=== PATIENT | male | born 1965 | race Caucasian/White ===

== ENCOUNTER 2018-01-30 09:06 | Inpatient (IN) | payer OTHER ==
[2018-01-30 09:21] VITALS: BMI 38.7
--- NOTE | 2018-01-30 11:06 | HP ---
CIWA Score Nausea/Vomitin Muscle Tremors: 2 Anxiety: 2 Agitation: 2 Paroxysmal Sweats: 1-Minimal Palms Moist Orientation: 0-Oriented Tacttile Disturbances: 1-Very Mild Itch/Numbness Auditory Disturbances: 1-Very Mild Visual Disturbances: 0-None Headache: 2-Mild CIWA-Ar Total Score: 13 - Admission Criteria OASAS Guidelines: Admission for Medically Managed Detox: Requires at least one of the followin. CIWA greater than 12 2. Seizures within the past 24 hours 3. Delirium tremens within the past 24 hours 4. Hallucinations within the past 24 hours 5. Acute intervention needed for co occurring medical disorder 6. Acute intervention needed for co occurring psychiatric disorder 7. Severe withdrawal that cannot be handled at a lower level of care (continued vomiting, continued diarrhea, abnormal vital signs) requiring intravenous medication and/or fluids 8. Patient presents the following: CIWA greater than 12 Admission Criteria Met: Admission criteria met Admission ROS BHS - HPI Chief Complaint: i need help to stop drinking alcohol Allergies/Adverse Reactions: Allergies Allergy/AdvReac Type Severity Reaction Status Date / Time No Known Allergies Allergy Verified 01/30/18 10:47 History of Present Illness: this 52 years old male with alcohol dependence,seeking detox,last treatment in rehab 02/05/15 to 02/11/15 , history of pancreatitis history hypertension,type 2 dm,hypercholesterolemia nicotine dependence no significant period of sobriety Exam Limitations: No Limitations - Ebola screening Have you traveled outside of the country in the last 21 days: No Have you had contact with anyone from an Ebola affected area: No Have you been sick,other than usual withdrawal symptoms: No Do you have a fever: No - Review of Systems Constitutional: Loss of Appetite, Malaise, Night Sweats, Changes in sleep EENT: reports: Nose Congestion Respiratory: reports: No Symptoms reported Cardiac: reports: No Symptoms Reported GI: reports: Nausea, Poor Appetite, Abdominal cramping : reports: No Symptoms Reported Musculoskeletal: reports: Back Pain, Muscle Pain Integumentary: reports: Dryness Neuro: reports: Tremors Endocrine: reports: No Symptoms Reported Hematology: reports: No Symptoms Reported Psychiatric: reports: No Sypmtoms Reported, Judgement Intact, Mood/Affect Appropiate, Orientated x3, Depressed Other Systems: Reviewed and Negative Patient History - Patient Medical History Hx Anemia: No Hx Asthma: Yes Hx Chronic Obstructive Pulmonary Disease (COPD): No Hx Cancer: No Hx Cardiac Disorders: No Hx Congestive Heart Failure: No Hx Hypertension: Yes Hx Hypercholesterolemia: Yes (FENOFIBRATE 145 MG DAILY) Hx Pacemaker: No HX Cerebrovascular Accident: No Hx Seizures: No Hx Dementia: No Hx Diabetes: Yes Hx Gastrointestinal Disorders: Yes (panceatitis) Hx Liver Disease: Yes (ALCOHOL HEPATITIS WITHOUT ASCITES ) Hx Genitourinary Disorders: No Hx Sexually Transmitted Disorders: No Hx Renal Disease (ESRD): No Hx Thyroid Disease: No Hx Human Immunodeficiency Virus (HIV): No Hx Hepatitis C: Yes (no treatment) Hx Depression: Yes Hx Suicide Attempt: No Hx Bipolar Disorder: No Hx Schizophrenia: No Other Medical History: no suicidal,no homicidal - Patient Surgical History Past Surgical History: No Hx Neurologic Surgery: No Hx Cataract Extraction: No Hx Cardiac Surgery: No Hx Lung Surgery: No Hx Breast Surgery: No Hx Breast Biopsy: No Hx Abdominal Surgery: No Hx Appendectomy: No Hx Cholecystectomy: No Hx Genitourinary Surgery: No Hx Section: No Hx Orthopedic Surgery: No Anesthesia Reaction: No - PPD History Previous Implant?: Yes Documented Results: Negative w/proof Implanted On Prior [facility] Admission?: Yes Date: 02/04/15 Results: 0 mm PPD to be Administered?: Yes - Smoking Cessation Smoking history: Current some day smoker Have you smoked in the past 12 months: Yes Aproximately how many cigarettes per day: 1 Hx Chewing Tobacco Use: No Initiated information on smoking cessation: Yes 'Breaking Loose' booklet given: 01/30/18 - Substance & Tx. History Hx Alcohol Use: Yes Hx Substance Use: No Substance Use Type: Alcohol Hx Substance Use Treatment: Yes (rehab [facility] 02/05/15 to 02/11/15) - Substances Abused Alcohol Route: Oral Frequency: Daily Amount used: 6 packs of 24 ozs of beer Age of first use: 12 Date of Last Use: 01/29/18 Family Disease History - Family Disease History Family Disease History: Heart Disease: Mother (HTN- ), Other: Father ( ALCOHOLISM), Mother Admission Physical Exam BHS - Vital Signs Vital Signs: Vital Signs - 24 hr 01/30/18 09:15 Temperature 99.2 F Pulse Rate 78 Respiratory 18 Rate Blood Pressure 168/79 - Physical General Appearance: Yes: Moderate Distress, Tremorous, Irritable, Sweating, Anxious HEENTM: Yes: Normal ENT Inspection, ANKIT, Pharynx Normal Respiratory: Yes: Lungs Clear, Normal Breath Sounds, No Respiratory Distress Neck: Yes: Supple Breast: Yes: Within Normal Limits Cardiology: Yes: Within Normal Limits, Regular Rhythm, Regular Rate, S1, S2 Abdominal: Yes: Within Normal Limits, Normal Bowel Sounds, Non Tender, Soft Genitourinary: Yes: Within Normal Limits Back: Yes: Muscle Spasm Musculoskeletal: Yes: Within Normal Limits, Back pain, Muscle Pain Extremities: Yes: Tremors 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 NML intact, Alert, Motor Strength 5/5 Integumentary: Yes: Dry Lymphatic: Yes: Within Normal Limits - Diagnostic (1) Alcohol dependence with uncomplicated withdrawal Current Visit: No Status: Acute (2) Asthma Current Visit: No Status: Chronic Qualifiers: Asthma severity: mild intermittent Asthma complication type: uncomplicated (3) GERD (gastroesophageal reflux disease) Current Visit: No Status: Chronic (4) Hyperlipidemia Current Visit: No Status: Chronic Qualifiers: Hyperlipidemia type: Mixed hyperlipidemia (5) History of pancreatitis Current Visit: Yes Status: Acute Cleared for Admission [facility] - Detox or Rehab [facility] Level of Care: Medically Managed Detox Regimen/Protocol: Librium [facility] Breath Alcohol Content Breath Alcohol Content: 0.085 Urine Drug Screen - Results Drug Screen Negative: No Urine Drug Screen Results: THC-Marijuana, BZO-Benzodiazepines
[2018-01-30] MEDS ORDERED: ACETAMINOPHEN 325 MG TABLET (FP) PO PRN (11:15)
[2018-01-30] MEDS ORDERED: MAGNESIUM HYDROX 2400MG/30ML ORAL SUSPENSION 30 ML CUP PO PRN (11:15)
[2018-01-30] MEDS ORDERED: guaiFENesin/D-METHORPHAN HB 10 ML UNIT-DOSE CUPS PO PRN (11:15)
[2018-01-30] MEDS ORDERED: LOPERAMIDE HCL 2 MG CAPSULE PO PRN (11:15)
[2018-01-30] MEDS ORDERED: MAGNESIUM CITRATE 300 ML BOTTLE PO PRN (11:15)
[2018-01-30] MEDS ORDERED: P-EPHED 60MG/TRIPROLIDI 2.5MG TABLET PO PRN (11:15)
[2018-01-30] MEDS ORDERED: hydrOXYzine PAMOATE 50 MG CAPSULE (FP) PO PRN (11:15)
[2018-01-30] MEDS ORDERED: MAG HYDROX/AL HYDROX/SIMETH 30 ML UNIT-DOSE CUP PO PRN (11:15)
[2018-01-30] MEDS ORDERED: MENTHOL/PHENOL 1 EACH UD MM PRN (11:15)
[2018-01-30] MEDS: chlordiazePOXIDE HCL 25 MG CAPSULE PO PRN (12:34)
[2018-01-30] MEDS: amLODIPine BESYLATE 10 MG TABLET (FP) PO SCH (12:35)
[2018-01-30] MEDS: METOPROLOL TARTRATE 50 MG TABLET (FP) PO SCH ×2 (12:35→22:20)
[2018-01-30] MEDS: HYDROCHLOROTHIAZIDE 12.5 MG CAPSULE (FP) PO SCH (12:35)
[2018-01-30] MEDS: chlordiazePOXIDE HCL 25 MG CAPSULE PO SCH ×2 (17:42→22:19)
[2018-01-30 17:43] LABS: URINE APPEARANCE CLEAR; URINE BILIRUBIN NEGATIVE (<2.0 mg/dL); URINE COLOR LTYELLOW; URINE GLUCOSE (UA) 2+ (NEGATIVE); URINE KETONE NEGATIVE (NEGATIVE); URINE LEUK ESTERASE NEGATIVE (NEGATIVE); URINE NITRITE NEGATIVE (NEGATIVE); URINE PROTEIN NEGATIVE (NEGATIVE)
[2018-01-30] MEDS: THIAMINE HCL 100 MG TABLET (FP) PO SCH (22:19)
[2018-01-30] MEDS: MELATONIN 5 MG TABLETS PO PRN (22:20)
[2018-01-31] MEDS: chlordiazePOXIDE HCL 25 MG CAPSULE PO SCH ×4 (05:15→22:15)
[2018-01-31] MEDS: chlordiazePOXIDE HCL 25 MG CAPSULE PO PRN (08:33)
[2018-01-31 10:00] LABS: HEMATOCRIT 44.7 % (35.4-49); HEMOGLOBIN 14.7 GM/dL (11.7-16.9); MCH 32.2 pg (25.7-33.7); MCHC 32.8 g/dl (32.0-35.9); MEAN CELL VOLUME 98.4 fl (80-96); PLATELET COUNT 200 K/MM3 (134-434); RBC 4.55 M/mm3 (4.00-5.60); WHITE BLOOD COUNT 7.7 K/mm3 (4.0-10.0)
[2018-01-31] MEDS: PRENATAL VITAMINS W/ FOLIC ACID TABLET (FP) PO SCH (10:06)
[2018-01-31] MEDS: amLODIPine BESYLATE 10 MG TABLET (FP) PO SCH (10:06)
[2018-01-31] MEDS: FENOFIBRIC ACID 135 MG CAP PO SCH (10:06)
[2018-01-31] MEDS: HYDROCHLOROTHIAZIDE 12.5 MG CAPSULE (FP) PO SCH (10:06)
[2018-01-31] MEDS: METOPROLOL TARTRATE 50 MG TABLET (FP) PO SCH ×2 (10:06→22:15)
--- NOTE | 2018-01-31 10:35 | PN ---
S CIWA - CIWA Score Nausea/Vomitin-No Nausea/No Vomiting Muscle Tremors: 2 Anxiety: 1-Mildly Anxious Agitation: 1-Slight > Activity Paroxysmal Sweats: 2 Orientation: 0-Oriented Tacttile Disturbances: 2-Mild Itch/Numbness/Burn Auditory Disturbances: 0-None Visual Disturbances: 0-None Headache: 0-None Present CIWA-Ar Total Score: 8 BHS Progress Note (SOAP) Subjective: PATIENT C/O SHAKES, ANXIETY/RESTLESSNESS, SWEATING AND NUMBNESS/TINGLING OF FEET. Objective: 01/31/18 10:31 Vital Signs Temperature 97.7 F 01/31/18 09:22 Pulse Rate 62 01/31/18 09:22 Respiratory Rate 18 01/31/18 09:22 Blood Pressure 145/74 01/31/18 09:22 O2 Sat by Pulse Oximetry (%) Vital Signs Temperature 97.7 F 01/31/18 09:22 Pulse Rate 62 01/31/18 09:22 Respiratory Rate 18 01/31/18 09:22 Blood Pressure 145/74 01/31/18 09:22 O2 Sat by Pulse Oximetry (%) Laboratory Tests 01/30/18 01/30/18 01/30/18 10:53 11:50 16:18 WBC RBC Hgb Hct MCV MCH MCHC RDW Plt Count MPV POC Glucometer 206 106 Urine Color Urine Appearance Urine pH Ur Specific [place] Urine Protein Urine Glucose (UA) Urine Ketones Urine Blood Urine Nitrite Urine Bilirubin Urine Urobilinogen Ur Leukocyte Esterase HIV 1&2 Antibody Screen Negative HIV P24 Antigen Negative 01/30/18 01/31/18 01/31/18 16:56 05:14 05:50 WBC 7.7 RBC 4.55 Hgb 14.7 Hct 44.7 MCV 98.4 H MCH 32.2 MCHC 32.8 RDW 14.0 D Plt Count 200 D MPV 8.0 POC Glucometer 135 Urine Color Ltyellow Urine Appearance Clear Urine pH 7.0 D Ur Specific [place] 1.012 Urine Protein Negative Urine Glucose (UA) 2+ H Urine Ketones Negative Urine Blood Negative Urine Nitrite Negative Urine Bilirubin Negative Urine Urobilinogen 2.0 Ur Leukocyte Esterase Negative HIV 1&2 Antibody Screen HIV P24 Antigen PE: ALERT AND ORIENTED SKIN WARM AND MOIST CAR S1S2 RESP CTA BL EXT +TREMORS, +PEDAL EDEMA B/L ANXIOUS Assessment: 01/31/18 10:32 WITHDRAWAL SX Plan: CONTINUE DETOX ENCOURAGE ORAL FLUIDS CONTINUE TO MONITOR CLINICALLY
[2018-01-31] MEDS: IBUPROFEN 400 MG TABLET (FP) PO PRN ×2 (10:41→17:32)
[2018-01-31 10:47] LABS: ALBUMIN 3.7 g/dl (3.4-5.0); ALK PHOS 198 U/L (45-117); ANION GAP 10 MMOL/L (8-16); BILIRUBIN,TOTAL 1.1 mg/dL (0.2-1); BLOOD UREA NITROGEN 15 mg/dL (7-18); CHLORIDE 97 mmol/L (98-107); CO2 29 mmol/L (21-32); CREATININE 0.8 mg/dL (0.55-1.3); GLUCOSE,RANDOM 178 mg/dL (74-106); POTASSIUM 4.1 mmol/L (3.5-5.1); SGOT/AST 73 U/L (15-37); SGPT/ALT 103 U/L (13-61); SODIUM 136 mmol/L (136-145); TOT PROT 7.4 g/dl (6.4-8.2)
--- NOTE | 2018-01-31 11:37 | EKG ---
Test Reason : Blood Pressure : / mmHG Vent. Rate : 075 BPM Atrial Rate : 075 BPM P-R Int : 160 ms QRS Dur : 160 ms QT Int : 490 ms P-R-T Axes : 037 -70 001 degrees QTc Int : 547 ms SINUS RHYTHM WITH PREMATURE ATRIAL COMPLEXES RIGHT BUNDLE BRANCH BLOCK LEFT ANTERIOR FASCICULAR BLOCK BIFASCICULAR BLOCK ABNORMAL ECG WHEN COMPARED WITH ECG OF 05-FEB-2015 15:00, PREMATURE ATRIAL COMPLEXES ARE NOW PRESENT T WAVE INVERSION NOW EVIDENT IN INFERIOR LEADS Confirmed by SIMA MCKEON, INOCENCIA ([id number]) on 01/31/2018 11:36:49 AM Referred By: Confirmed By:INOCENCIA GAO MD
[2018-01-31] MEDS ORDERED: FLU VACCINE QUAD 60 MCG/0.5 ML (MDV 18-19) IM ONE (12:00)
[2018-01-31] MEDS ORDERED: PNEUMOC 13-VAL CONJ-DIP CRM/PF 0.5 ML DISP.SYRIN IM ONE (12:00)
[2018-01-31] MEDS ORDERED: PNEUMOCOCCAL 23 VACCINE 0.5 ML VIAL IM ONE (12:00)
--- NOTE | 2018-01-31 15:53 | CONSULT ---
[facility] Psychiatric Consult - Data Date of interview: 01/31/18 Admission source: [facility] Identifying data: Readmission to [facility] for this 52 y/o male seeking detoxification treatment, on , for alcohol dependence. Patient is single without dependents, homeless, unemployed and supported by relatives. Substance Abuse History: Confirmed by patient in this interview. Details in current [facility] report : Smoking history: Current some day smoker. Have you smoked in the past 12 months: Yes. Aproximately how many cigarettes per day: 1. Hx Chewing Tobacco Use: No. Initiated information on smoking cessation: Yes. ' Breaking Loose' booklet given: 01/30/18. - Substance & Tx. History. Hx Alcohol Use: Yes. Hx Substance Use: No. Substance Use Type: Alcohol. Hx Substance Use Treatment: [facility] - Substances Abused. Alcohol. Route: Oral. Frequency: Daily. Amount used: 6 packs of 24 ozs of beer. Age of first use: 12. Date of Last Use: 01/29/18 Medical History: Obesity, history of pancreatitis, bronchial asthma, hypertension, hypercholesterolemia and hepatitis (alcohol-induced). Psychiatric History: Patient denies history of psychiatric illness or suicide attempts. No antecedent of psychiatric OPD care. Physical/Sexual Abuse/Trauma History: Patient denies. Additional Comment: Urine Drug Screen Results: THC-Marijuana, BZO- Benzodiazepines. Noted. Mental Status Exam - Mental Status Exam Alert and Oriented to: Time, Place, Person Cognitive Function: Good Patient Appearance: Well Groomed Mood: Withdrawn, Hopeful Affect: Appropriate, Normal Range Patient Behavior: Fatigued, Cooperative Speech Pattern: Clear, Appropriate Voice Loudness: Normal Thought Process: Goal Oriented Thought Disorder: Not Present Hallucinations: Denies Suicidal Ideation: Denies Homicidal Ideation: Denies Insight/Judgement: Poor Sleep: Poorly, Difficulty falling asleep Appetite: Good Muscle strength/Tone: Normal Gait/Station: Normal Psychiatric Findings - Problem List (Pride 1, 2,3) (1) Alcohol dependence with uncomplicated withdrawal Current Visit: Yes Status: Acute (2) Cannabis abuse Current Visit: Yes Status: Acute (3) Insomnia Current Visit: Yes Status: Acute - Initial Treatment Plan Initial Treatment Plan: Psychoeducation. Sleep hygiene. Detoxification in progress. AA meetings. Supportive, group therapy. Recommend adherence to 12 step doctrine. Insomnia is addressed with melatonin at bedside. Patient agrees to this careplan. Observation.
[2018-01-31] MEDS: THIAMINE HCL 100 MG TABLET (FP) PO SCH (22:15)
[2018-02-01] MEDS: chlordiazePOXIDE HCL 25 MG CAPSULE PO SCH ×2 (05:17→10:26)
--- NOTE | 2018-02-01 10:02 | PN ---
S CIWA - CIWA Score Nausea/Vomitin-No Nausea/No Vomiting Muscle Tremors: 2 Anxiety: 2 Agitation: 1-Slight > Activity Paroxysmal Sweats: 2 Orientation: 0-Oriented Tacttile Disturbances: 0-None Auditory Disturbances: 0-None Visual Disturbances: 0-None Headache: 0-None Present CIWA-Ar Total Score: 7 BHS Progress Note (SOAP) Subjective: PATIENT C/O SWEATS, ANXIETY, SHAKES AND DRY COUGH. Objective: 02/01/18 10:00 Vital Signs Temperature 97.0 F L 02/01/18 09:12 Pulse Rate 65 02/01/18 09:12 Respiratory Rate 18 02/01/18 09:12 Blood Pressure 160/90 02/01/18 09:12 O2 Sat by Pulse Oximetry (%) Laboratory Tests 01/30/18 01/30/18 01/30/18 10:53 11:50 16:18 WBC RBC Hgb Hct MCV MCH MCHC RDW Plt Count MPV Sodium Potassium Chloride Carbon Dioxide Anion Gap BUN Creatinine Creat Clearance w eGFR POC Glucometer 206 106 Random Glucose Calcium Total Bilirubin AST ALT Alkaline Phosphatase Total Protein Albumin Urine Color Urine Appearance Urine pH Ur Specific [place] Urine Protein Urine Glucose (UA) Urine Ketones Urine Blood Urine Nitrite Urine Bilirubin Urine Urobilinogen Ur Leukocyte Esterase RPR Titer HIV 1&2 Antibody Screen Negative HIV P24 Antigen Negative 01/30/18 01/31/18 01/31/18 16:56 05:14 05:50 WBC 7.7 RBC 4.55 Hgb 14.7 Hct 44.7 MCV 98.4 H MCH 32.2 MCHC 32.8 RDW 14.0 D Plt Count 200 D MPV 8.0 Sodium Potassium Chloride Carbon Dioxide Anion Gap BUN Creatinine Creat Clearance w eGFR POC Glucometer 135 Random Glucose Calcium Total Bilirubin AST ALT Alkaline Phosphatase Total Protein Albumin Urine Color Ltyellow Urine Appearance Clear Urine pH 7.0 D Ur Specific [place] 1.012 Urine Protein Negative Urine Glucose (UA) 2+ H Urine Ketones Negative Urine Blood Negative Urine Nitrite Negative Urine Bilirubin Negative Urine Urobilinogen 2.0 Ur Leukocyte Esterase Negative RPR Titer HIV 1&2 Antibody Screen HIV P24 Antigen 01/31/18 01/31/18 01/31/18 05:50 05:50 16:17 WBC RBC Hgb Hct MCV MCH MCHC RDW Plt Count MPV Sodium 136 Potassium 4.1 Chloride 97 L Carbon Dioxide 29 Anion Gap 10 BUN 15 Creatinine 0.8 Creat Clearance w eGFR > 60 POC Glucometer 174 Random Glucose 178 H Calcium 8.0 L Total Bilirubin 1.1 H AST 73 H ALT 103 H Alkaline Phosphatase 198 H Total Protein 7.4 Albumin 3.7 Urine Color Urine Appearance Urine pH Ur Specific [place] Urine Protein Urine Glucose (UA) Urine Ketones Urine Blood Urine Nitrite Urine Bilirubin Urine Urobilinogen Ur Leukocyte Esterase RPR Titer Nonreactive HIV 1&2 Antibody Screen HIV P24 Antigen 02/01/18 05:17 WBC RBC Hgb Hct MCV MCH MCHC RDW Plt Count MPV Sodium Potassium Chloride Carbon Dioxide Anion Gap BUN Creatinine Creat Clearance w eGFR POC Glucometer 158 Random Glucose Calcium Total Bilirubin AST ALT Alkaline Phosphatase Total Protein Albumin Urine Color Urine Appearance Urine pH Ur Specific [place] Urine Protein Urine Glucose (UA) Urine Ketones Urine Blood Urine Nitrite Urine Bilirubin Urine Urobilinogen Ur Leukocyte Esterase RPR Titer HIV 1&2 Antibody Screen HIV P24 Antigen PE: SKIN WARM AND MOIST CAR S1S2 RESP FAINT SCATTERED WHEEZES, NO SOB EXT FULL ROM, +MILD TREMORS AMB AD CHARY Assessment: 02/01/18 10:01 WITHDRAWAL SX Plan: CONTINUE DETOX ENCOURAGE ORAL FLUIDS INCREASE HCTZ TO 25MG DAILY CONTINUE ALBUTEROL HFA PRN CONTINUE TO MONITOR
[2018-02-01] MEDS: amLODIPine BESYLATE 10 MG TABLET (FP) PO SCH (10:25)
[2018-02-01] MEDS: PRENATAL VITAMINS W/ FOLIC ACID TABLET (FP) PO SCH (10:25)
[2018-02-01] MEDS: METOPROLOL TARTRATE 50 MG TABLET (FP) PO SCH ×2 (10:26→22:16)
[2018-02-01] MEDS: HYDROCHLOROTHIAZIDE 25 MG TABLET (FP) PO SCH (10:27)
[2018-02-01] MEDS: ALBUTEROL SO4 8 GM HFA INHALER IH PRN ×2 (10:27→16:08)
[2018-02-01] MEDS: FENOFIBRIC ACID 135 MG CAP PO SCH (10:29)
[2018-02-01] MEDS: chlordiazePOXIDE 5 MG CAPSULE PO SCH ×2 (17:47→22:16)
[2018-02-01] MEDS: THIAMINE HCL 100 MG TABLET (FP) PO SCH (22:17)
[2018-02-01] MEDS: MELATONIN 5 MG TABLETS PO PRN (22:18)
[2018-02-02] MEDS: chlordiazePOXIDE 5 MG CAPSULE PO SCH ×2 (04:57→10:08)
[2018-02-02] MEDS: ALBUTEROL SO4 8 GM HFA INHALER IH PRN ×2 (09:41→22:01)
[2018-02-02] MEDS: PRENATAL VITAMINS W/ FOLIC ACID TABLET (FP) PO SCH (09:44)
[2018-02-02] MEDS: HYDROCHLOROTHIAZIDE 25 MG TABLET (FP) PO SCH (09:44)
[2018-02-02] MEDS: FENOFIBRIC ACID 135 MG CAP PO SCH (09:44)
[2018-02-02] MEDS: amLODIPine BESYLATE 10 MG TABLET (FP) PO SCH (09:44)
[2018-02-02] MEDS: METOPROLOL TARTRATE 50 MG TABLET (FP) PO SCH ×2 (09:44→22:14)
--- NOTE | 2018-02-02 10:44 | PN ---
[facility] Progress Note Note: PATIENT STATES HE IS FEELING BETTER. PATIENT C/O INTERRUPTED SLEEP, OCCASIONAL CHILLS/SWEATING. Vital Signs Temperature 97.5 F L 02/02/18 09:35 Pulse Rate 69 02/02/18 09:35 Respiratory Rate 16 02/02/18 09:35 Blood Pressure 148/78 02/02/18 09:35 O2 Sat by Pulse Oximetry (%) Laboratory Tests 01/30/18 01/30/18 01/30/18 10:53 11:50 16:18 WBC RBC Hgb Hct MCV MCH MCHC RDW Plt Count MPV Sodium Potassium Chloride Carbon Dioxide Anion Gap BUN Creatinine Creat Clearance w eGFR POC Glucometer 206 106 Random Glucose Calcium Total Bilirubin AST ALT Alkaline Phosphatase Total Protein Albumin Urine Color Urine Appearance Urine pH Ur Specific [place] Urine Protein Urine Glucose (UA) Urine Ketones Urine Blood Urine Nitrite Urine Bilirubin Urine Urobilinogen Ur Leukocyte Esterase RPR Titer HIV 1&2 Antibody Screen Negative HIV P24 Antigen Negative 01/30/18 01/31/18 01/31/18 16:56 05:14 05:50 WBC 7.7 RBC 4.55 Hgb 14.7 Hct 44.7 MCV 98.4 H MCH 32.2 MCHC 32.8 RDW 14.0 D Plt Count 200 D MPV 8.0 Sodium Potassium Chloride Carbon Dioxide Anion Gap BUN Creatinine Creat Clearance w eGFR POC Glucometer 135 Random Glucose Calcium Total Bilirubin AST ALT Alkaline Phosphatase Total Protein Albumin Urine Color Ltyellow Urine Appearance Clear Urine pH 7.0 D Ur Specific [place] 1.012 Urine Protein Negative Urine Glucose (UA) 2+ H Urine Ketones Negative Urine Blood Negative Urine Nitrite Negative Urine Bilirubin Negative Urine Urobilinogen 2.0 Ur Leukocyte Esterase Negative RPR Titer HIV 1&2 Antibody Screen HIV P24 Antigen 01/31/18 01/31/18 01/31/18 05:50 05:50 16:17 WBC RBC Hgb Hct MCV MCH MCHC RDW Plt Count MPV Sodium 136 Potassium 4.1 Chloride 97 L Carbon Dioxide 29 Anion Gap 10 BUN 15 Creatinine 0.8 Creat Clearance w eGFR > 60 POC Glucometer 174 Random Glucose 178 H Calcium 8.0 L Total Bilirubin 1.1 H AST 73 H ALT 103 H Alkaline Phosphatase 198 H Total Protein 7.4 Albumin 3.7 Urine Color Urine Appearance Urine pH Ur Specific [place] Urine Protein Urine Glucose (UA) Urine Ketones Urine Blood Urine Nitrite Urine Bilirubin Urine Urobilinogen Ur Leukocyte Esterase RPR Titer Nonreactive HIV 1&2 Antibody Screen HIV P24 Antigen 02/01/18 02/01/18 02/02/18 05:17 16:40 04:55 WBC RBC Hgb Hct MCV MCH MCHC RDW Plt Count MPV Sodium Potassium Chloride Carbon Dioxide Anion Gap BUN Creatinine Creat Clearance w eGFR POC Glucometer 158 161 167 Random Glucose Calcium Total Bilirubin AST ALT Alkaline Phosphatase Total Protein Albumin Urine Color Urine Appearance Urine pH Ur Specific [place] Urine Protein Urine Glucose (UA) Urine Ketones Urine Blood Urine Nitrite Urine Bilirubin Urine Urobilinogen Ur Leukocyte Esterase RPR Titer HIV 1&2 Antibody Screen HIV P24 Antigen PE: ALERT AND ORIENTED X 3 SKIN WARM, MILD MOISTURE EXT FULL ROM, NO TREMORS AMB AD CHARY A/P WITHDRAWAL SX CONTINUE DETOX REGIMEN ENCOURAGE ORAL FLUIDS CONTINUE TO MONITOR CLINICALLY
[2018-02-02] MEDS: chlordiazePOXIDE HCL 10 MG CAPSULE PO SCH ×2 (17:10→22:14)
[2018-02-02] MEDS: THIAMINE HCL 100 MG TABLET (FP) PO SCH (22:14)
[2018-02-02] MEDS: MELATONIN 5 MG TABLETS PO PRN (22:14)
[2018-02-03] MEDS: chlordiazePOXIDE HCL 10 MG CAPSULE PO SCH ×2 (05:47→10:10)
[2018-02-03] MEDS: IBUPROFEN 400 MG TABLET (FP) PO PRN (05:47)
[2018-02-03 09:54] VITALS: BP 145/77; PULSE 65; TEMP 98.4
[2018-02-03] MEDS: PRENATAL VITAMINS W/ FOLIC ACID TABLET (FP) PO SCH (10:10)
[2018-02-03] MEDS: ALBUTEROL SO4 8 GM HFA INHALER IH PRN (10:10)
[2018-02-03] MEDS: FENOFIBRIC ACID 135 MG CAP PO SCH (10:10)
[2018-02-03] MEDS: METOPROLOL TARTRATE 50 MG TABLET (FP) PO SCH (10:11)
[2018-02-03] MEDS: amLODIPine BESYLATE 10 MG TABLET (FP) PO SCH (10:11)
[2018-02-03] MEDS: HYDROCHLOROTHIAZIDE 25 MG TABLET (FP) PO SCH (10:11)
--- NOTE | 2018-02-03 10:42 | DS ---
[facility] Detox Discharge Summary Admission Date: 01/30/18 Discharge Date: 02/03/18 - History Present History: Alcohol Dependence - Physical Exam Results Vital Signs: Vital Signs Temperature 98.4 F 02/03/18 09:51 Pulse Rate 65 02/03/18 09:51 Respiratory Rate 18 02/03/18 09:51 Blood Pressure 145/77 02/03/18 09:51 O2 Sat by Pulse Oximetry (%) Pertinent Admission Physical Exam Findings: PATIENT COMPLETED DETOX WITHOUT ADVERSE EVENT. PATIENT DENIES SI/HI. CLINICALLY STABLE. ACCEPTED REFERRAL TO REHAB AT [facility]. PATIENT ENCOURAGED TO COMPLETE REHAB TO PREVENT RELAPSE. D/C INSTRUCTIONS GIVEN TO PATIENT BY STAFF. - Treatment Hospital Course: Detox Protocol Followed, Detoxed Safely, Responded well, Discharged Condition Good, Rehab Referral Accepted Patient has Accepted a Rehab Referral to: [facility] - Medication Discharge Medications: Ambulatory Orders Diphenhydramine HCl [Benadryl Capsule -] 50 mg PO HS PRN #0 capsule 02/11/15 Hypromellose 0.5% Opth Soln [Artificial Tears] 2 drop OU TID PRN #0 drops Hydrochlorothiazide [Hctz -] 12.5 mg PO DAILY #30 cap 03/09/15 Escitalopram Oxalate [Lexapro -] 10 mg PO DAILY #30 tablet 03/11/15 Albuterol Sulfate Inhaler - [Ventolin HFA Inhaler -] 2 puff IH QID PRN #1 inhaler 02/02/18 Amlodipine Besylate [Norvasc -] 10 mg PO DAILY #30 tablet 02/02/18 Fenofibric Acid [Trilipix -] 135 mg PO DAILY #30 cap 02/02/18 Hydrochlorothiazide [Hctz -] 25 mg PO DAILY 14 Days #14 tablet 02/02/18 Metoprolol Tartrate [Lopressor -] 100 mg PO BID #60 tablet 02/02/18 - Diagnosis (1) Alcohol dependence with uncomplicated withdrawal Current Visit: Yes Status: Resolved - AMA Did Patient Leave Against Medical Advice: No
== END 2018-02-03 12:46 | disposition home or self-care (01) | DRG 775 ==
LOC: YASAS 09:06 → Y3N 11:40
PROC: HZ2ZZZZ Detoxification Services for Substance Abuse Treatment (ICD-10-PCS; principal; 2018-01-30)
DX: F10.230 Alcohol dependence with withdrawal, uncomplicated (principal); F12.10 Cannabis abuse, uncomplicated; G47.00 Insomnia, unspecified; J45.20 Mild intermittent asthma, uncomplicated; K21.9 Gastro-esophageal reflux disease without esophagitis; E11.9 Type 2 diabetes mellitus without complications; E78.2 Mixed hyperlipidemia; K85.90 Acute pancreatitis without necrosis or infection, unspecified; K70.10 Alcoholic hepatitis without ascites
CPT/HCPCS: 36415; 80053; 81003; 82962; 85027; 86593; 87389; 90688; 90732; 93005; 93010; G0008; G0009

== ENCOUNTER 2018-02-26 08:24 | Inpatient (IN) | payer OTHER ==
[2018-02-26 08:55] VITALS: BMI 37.9
--- NOTE | 2018-02-26 09:10 | HP ---
CIWA Score Nausea/Vomitin Muscle Tremors: 2 Anxiety: 2 Agitation: 2 Paroxysmal Sweats: 1-Minimal Palms Moist Orientation: 0-Oriented Tacttile Disturbances: 1-Very Mild Itch/Numbness Auditory Disturbances: 1-Very Mild Visual Disturbances: 0-None Headache: 2-Mild CIWA-Ar Total Score: 13 - Admission Criteria OASAS Guidelines: Admission for Medically Managed Detox: Requires at least one of the followin. CIWA greater than 12 2. Seizures within the past 24 hours 3. Delirium tremens within the past 24 hours 4. Hallucinations within the past 24 hours 5. Acute intervention needed for co occurring medical disorder 6. Acute intervention needed for co occurring psychiatric disorder 7. Severe withdrawal that cannot be handled at a lower level of care (continued vomiting, continued diarrhea, abnormal vital signs) requiring intravenous medication and/or fluids 8. Patient presents the following: CIWA greater than 12 Admission Criteria Met: Admission criteria met Admission ROS S - [facility] Chief Complaint: i need help to stop drinking alcohol,cocaine and marijuana Allergies/Adverse Reactions: Allergies Allergy/AdvReac Type Severity Reaction Status Date / Time No Known Allergies Allergy Verified 02/26/18 08:54 History of Present Illness: this 52 years old male with alcohol,cocaine and marijuana dependence,seeking, last detox detox 01/30/18 to 02/03/18 at [facility] syncope alcohol related history of hypertension,iddm,non compliance hepatitis c treated seen in [place] last night multiple admissions in detox no significant period of sobriety - Ebola screening Have you traveled outside of the country in the last 21 days: No Have you had contact with anyone from an Ebola affected area: No Have you been sick,other than usual withdrawal symptoms: No Do you have a fever: No - Review of Systems Constitutional: Loss of Appetite, Malaise, Night Sweats, Changes in sleep, Weakness EENT: reports: Nose Congestion Respiratory: reports: No Symptoms reported Cardiac: reports: No Symptoms Reported GI: reports: Nausea, Poor Appetite, Abdominal cramping : reports: No Symptoms Reported Musculoskeletal: reports: Back Pain, Muscle Pain Integumentary: reports: Dryness Neuro: reports: Headache, Tremors Endocrine: reports: No Symptoms Reported Hematology: reports: No Symptoms Reported Psychiatric: reports: No Sypmtoms Reported, Judgement Intact, Mood/Affect Appropiate, Orientated x3, other (bipolar disorder) Patient History - Patient Medical History Hx Anemia: No Hx Asthma: Yes Hx Chronic Obstructive Pulmonary Disease (COPD): No Hx Cancer: No Hx Cardiac Disorders: No Hx Congestive Heart Failure: No Hx Hypertension: Yes Hx Hypercholesterolemia: Yes (FENOFIBRATE 145 MG DAILY) Hx Pacemaker: No HX Cerebrovascular Accident: No Hx Seizures: No Hx Dementia: No Hx Diabetes: Yes Hx Gastrointestinal Disorders: Yes (panceatitis) Hx Liver Disease: Yes (ALCOHOL HEPATITIS WITHOUT ASCITES ) Hx Genitourinary Disorders: No Hx Sexually Transmitted Disorders: No Hx Renal Disease (ESRD): No Hx Thyroid Disease: No Hx Human Immunodeficiency Virus (HIV): No Hx Hepatitis C: Yes (treated) Hx Depression: Yes Hx Suicide Attempt: No Hx Bipolar Disorder: Yes (no med) Hx Schizophrenia: No Other Medical History: no suicidal,no homicidal - Patient Surgical History Past Surgical History: No Hx Neurologic Surgery: No Hx Cataract Extraction: No Hx Cardiac Surgery: No Hx Lung Surgery: No Hx Breast Surgery: No Hx Breast Biopsy: No Hx Abdominal Surgery: No Hx Appendectomy: No Hx Cholecystectomy: No Hx Genitourinary Surgery: No Hx Section: No Hx Orthopedic Surgery: No Anesthesia Reaction: No - PPD History Previous Implant?: Yes Documented Results: Negative w/proof Implanted On Prior [facility] Admission?: Yes Date: 02/01/18 Results: 0 mm PPD to be Administered?: No - Smoking Cessation Smoking history: Current some day smoker Have you smoked in the past 12 months: Yes Aproximately how many cigarettes per day: 1 Hx Chewing Tobacco Use: No Initiated information on smoking cessation: Yes 'Breaking Loose' booklet given: 02/26/18 - Substance & Tx. History Hx Alcohol Use: Yes Hx Substance Use: Yes Substance Use Type: Alcohol, Cocaine, Marijuana Hx Substance Use Treatment: Yes ([facility] 01/30/18 to 02/03/18 ) - Substances Abused Alcohol Route: Oral Frequency: Daily (2 pint pf vodka.bacardi) Amount used: 2 pints of vodka,nacardi/5 of 24 ozs of beer Age of first use: 12 Date of Last Use: 02/25/18 Cocaine Route: Inhalation Frequency: 1-2 times per week Amount used: 20$ Age of first use: 12 Date of Last Use: 02/20/18 Marijuana/Hashish Route: Smoking Frequency: 1-2 times per week Amount used: 15$ Age of first use: 24 Date of Last Use: 02/21/18 Family Disease History - Family Disease History Family Disease History: Heart Disease: Mother (HTN- ), Other: Father ( ALCOHOLISM), Mother Admission Physical Exam [facility] - Vital Signs Vital Signs: Vital Signs - 24 hr 02/26/18 08:52 Temperature 97.5 F L Pulse Rate 95 H Respiratory 18 Rate Blood Pressure 171/86 H - Physical General Appearance: Yes: Moderate Distress, Tremorous, Irritable, Sweating, Anxious HEENTM: Yes: Normal ENT Inspection, ANKIT, Pharynx Normal Respiratory: Yes: Lungs Clear, Normal Breath Sounds, No Respiratory Distress Neck: Yes: Within Normal Limits, Supple, Trachea in good position Breast: Yes: Within Normal Limits Cardiology: Yes: Within Normal Limits, Regular Rhythm, Regular Rate, S1, S2 Abdominal: Yes: Normal Bowel Sounds, Non Tender, Soft, Distended Genitourinary: Yes: Within Normal Limits Back: Yes: Muscle Spasm Extremities: Yes: Within Normal Limits, Normal Range of Motion, Tremors Neurological: Yes: 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 NML intact, Alert, Motor Strength 5/5, Normal Mood /Affect Integumentary: Yes: Dry Lymphatic: Yes: Within Normal Limits - Diagnostic (1) Alcohol dependence with uncomplicated withdrawal Current Visit: No Status: Resolved (2) Cannabis abuse Current Visit: No Status: Acute (3) Cocaine dependence Current Visit: No Status: Acute (4) History of pancreatitis Current Visit: No Status: Acute (5) Asthma Current Visit: No Status: Chronic Qualifiers: Asthma severity: mild intermittent Asthma complication type: uncomplicated (6) Hyperlipidemia Current Visit: No Status: Chronic Qualifiers: Hyperlipidemia type: Mixed hyperlipidemia (7) Hypertension Current Visit: No Status: Chronic Qualifiers: Hypertension type: essential hypertension Qualified Code(s): I10 - Essential (primary) hypertension (8) History of ascites Current Visit: Yes Status: Acute Cleared for Admission [facility] - Detox or Rehab [facility] Level of Care: Medically Managed Detox Regimen/Protocol: Librium [facility] Breath Alcohol Content Breath Alcohol Content: 0.064 Urine Drug Screen - Results Drug Screen Negative: No Urine Drug Screen Results: THC-Marijuana, JE-Cocaine, BZO-Benzodiazepines
[2018-02-26] MEDS ORDERED: MAGNESIUM HYDROX 2400MG/30ML ORAL SUSPENSION 30 ML CUP PO PRN (09:25)
[2018-02-26] MEDS ORDERED: chlordiazePOXIDE HCL 25 MG CAPSULE PO PRN (09:25)
[2018-02-26] MEDS ORDERED: guaiFENesin/D-METHORPHAN HB 10 ML UNIT-DOSE CUPS PO PRN (09:25)
[2018-02-26] MEDS ORDERED: MENTHOL/PHENOL 1 EACH UD MM PRN (09:25)
[2018-02-26] MEDS ORDERED: MAG HYDROX/AL HYDROX/SIMETH 30 ML UNIT-DOSE CUP PO PRN (09:25)
[2018-02-26] MEDS ORDERED: MAGNESIUM CITRATE 300 ML BOTTLE PO PRN (09:25)
[2018-02-26] MEDS ORDERED: ACETAMINOPHEN 325 MG TABLET (FP) PO PRN (09:25)
[2018-02-26] MEDS ORDERED: P-EPHED 60MG/TRIPROLIDI 2.5MG TABLET PO PRN (09:25)
[2018-02-26] MEDS ORDERED: LOPERAMIDE HCL 2 MG CAPSULE PO PRN (09:25)
[2018-02-26] MEDS: INSULIN SLIDING SCALE (NOVOLOG) 1 VIAL SQ SCH ×3 (12:54→22:48)
[2018-02-26] MEDS: amLODIPine BESYLATE 10 MG TABLET (FP) PO SCH (12:54)
[2018-02-26] MEDS: PRENATAL VITAMINS W/ FOLIC ACID TABLET (FP) PO SCH (12:54)
[2018-02-26] MEDS: chlordiazePOXIDE HCL 25 MG CAPSULE PO SCH ×3 (12:54→22:22)
[2018-02-26] MEDS ORDERED: INSULIN (NOVOLOG) ASPART 100 UNITS/ML 10ML VIAL ONE ×2 (17:11→22:20)
[2018-02-26] MEDS ORDERED: cloNIDine HCL 0.1 MG TABLET PO ONE (17:15)
[2018-02-26] MEDS: MELATONIN 5 MG TABLETS PO PRN (22:22)
[2018-02-26] MEDS: THIAMINE HCL 100 MG TABLET (FP) PO SCH (22:22)
[2018-02-26] MEDS: METOPROLOL TARTRATE 50 MG TABLET (FP) PO SCH (22:22)
[2018-02-26] MEDS: hydrOXYzine PAMOATE 50 MG CAPSULE (FP) PO PRN (23:15)
[2018-02-27] MEDS: chlordiazePOXIDE HCL 25 MG CAPSULE PO SCH ×4 (06:36→22:27)
[2018-02-27] MEDS: IBUPROFEN 400 MG TABLET (FP) PO PRN (06:38)
[2018-02-27] MEDS ORDERED: INSULIN (NOVOLOG) ASPART 100 UNITS/ML 10ML VIAL ONE (07:02)
[2018-02-27] MEDS: INSULIN SLIDING SCALE (NOVOLOG) 1 VIAL SQ SCH ×4 (07:40→22:35)
[2018-02-27] MEDS: ALBUTEROL SO4 8 GM HFA INHALER IH PRN (08:15)
[2018-02-27 10:49] LABS: HEMATOCRIT 43.9 % (35.4-49); HEMOGLOBIN 14.4 GM/dL (11.7-16.9); MCHC 32.7 g/dl (32.0-35.9); MEAN CELL VOLUME 100.8 fl (80-96); MEAN PLT VOLUME 8.2 fl (7.5-11.1); PLATELET COUNT 218 K/MM3 (134-434); RBC 4.36 M/mm3 (4.00-5.60); RDW 14.7 % (11.9-15.9); WHITE BLOOD COUNT 7.3 K/mm3 (4.0-10.0)
[2018-02-27] MEDS: FENOFIBRIC ACID 135 MG CAP PO SCH (10:57)
[2018-02-27] MEDS: METOPROLOL TARTRATE 50 MG TABLET (FP) PO SCH ×2 (10:57→22:26)
[2018-02-27] MEDS: amLODIPine BESYLATE 10 MG TABLET (FP) PO SCH (10:57)
[2018-02-27] MEDS: PRENATAL VITAMINS W/ FOLIC ACID TABLET (FP) PO SCH (10:58)
[2018-02-27] MEDS: HYDROCHLOROTHIAZIDE 25 MG TABLET (FP) PO SCH (10:58)
[2018-02-27] MEDS ORDERED: ALBUTEROL SO4 2.5/IPRATROPIUM 0.5 INH SOL 3 ML VIAL.NEB. NEB PRN (11:00)
[2018-02-27 11:03] LABS: ALBUMIN 3.9 g/dl (3.4-5.0); ALK PHOS 195 U/L (45-117); ANION GAP 12 MMOL/L (8-16); BILIRUBIN,TOTAL 0.4 mg/dL (0.2-1); BLOOD UREA NITROGEN 18 mg/dL (7-18); CALCIUM 8.8 mg/dL (8.5-10.1); CHLORIDE 99 mmol/L (98-107); CO2 22 mmol/L (21-32); CREATININE 1.1 mg/dL (0.55-1.3); GLUCOSE,RANDOM 245 mg/dL (74-106); POTASSIUM 4.2 mmol/L (3.5-5.1); SGOT/AST 67 U/L (15-37); SGPT/ALT 59 U/L (13-61); SODIUM 133 mmol/L (136-145); TOT PROT 8.1 g/dl (6.4-8.2)
--- NOTE | 2018-02-27 11:33 | PN ---
S CIWA - CIWA Score Nausea/Vomitin-No Nausea/No Vomiting Muscle Tremors: 4-Moderate,w/Arms Extend Anxiety: 2 Agitation: 3 Paroxysmal Sweats: 2 Orientation: 0-Oriented Tacttile Disturbances: 0-None Auditory Disturbances: 0-None Visual Disturbances: 0-None Headache: 1-Very Mild CIWA-Ar Total Score: 12 S Progress Note (SOAP) Subjective: tired sweats shakes SOB body aches Objective: 02/27/18 11:33 Vital Signs Temperature 98.0 F 02/27/18 09:49 Pulse Rate 69 02/27/18 09:49 Respiratory Rate 18 02/27/18 09:49 Blood Pressure 137/70 02/27/18 09:49 O2 Sat by Pulse Oximetry (%) Laboratory Tests 02/26/18 02/26/18 02/26/18 09:43 16:25 21:59 WBC RBC Hgb Hct MCV MCH MCHC RDW Plt Count MPV Sodium Potassium Chloride Carbon Dioxide Anion Gap BUN Creatinine Creat Clearance w eGFR POC Glucometer 221 164 205 Random Glucose Calcium Total Bilirubin AST ALT Alkaline Phosphatase Total Protein Albumin 02/27/18 02/27/18 02/27/18 05:45 05:45 06:34 WBC 7.3 RBC 4.36 Hgb 14.4 Hct 43.9 MCV 100.8 H MCH 33.0 MCHC 32.7 RDW 14.7 Plt Count 218 MPV 8.2 Sodium 133 L Potassium 4.2 Chloride 99 Carbon Dioxide 22 Anion Gap 12 BUN 18 Creatinine 1.1 Creat Clearance w eGFR > 60 POC Glucometer 152 Random Glucose 245 H Calcium 8.8 Total Bilirubin 0.4 AST 67 H ALT 59 Alkaline Phosphatase 195 H Total Protein 8.1 Albumin 3.9 aaox3 ambulating no acute distress Assessment: 02/27/18 11:36 withdrawal sx Plan: continue detox increase fluids duoneb prn
[2018-02-27] MEDS ORDERED: NAPHAZOLINE/PHENIRAMINE OPHTHALMIC 15 ML BOTTLE OU PRN (20:17)
[2018-02-27] MEDS: MELATONIN 5 MG TABLETS PO PRN (22:30)
[2018-02-27] MEDS: THIAMINE HCL 100 MG TABLET (FP) PO SCH (23:09)
[2018-02-28] MEDS: chlordiazePOXIDE HCL 25 MG CAPSULE PO SCH (06:00)
[2018-02-28] MEDS: INSULIN SLIDING SCALE (NOVOLOG) 1 VIAL SQ SCH ×4 (07:12→21:51)
[2018-02-28] MEDS: hydrOXYzine PAMOATE 50 MG CAPSULE (FP) PO PRN (08:53)
[2018-02-28] MEDS: HYDROCHLOROTHIAZIDE 25 MG TABLET (FP) PO SCH (10:32)
[2018-02-28] MEDS: PRENATAL VITAMINS W/ FOLIC ACID TABLET (FP) PO SCH (10:32)
[2018-02-28] MEDS: METOPROLOL TARTRATE 50 MG TABLET (FP) PO SCH ×2 (10:33→22:11)
[2018-02-28] MEDS: FENOFIBRIC ACID 135 MG CAP PO SCH (10:33)
[2018-02-28] MEDS: chlordiazePOXIDE 5 MG CAPSULE PO SCH ×3 (10:33→22:11)
[2018-02-28] MEDS: amLODIPine BESYLATE 10 MG TABLET (FP) PO SCH (10:33)
--- NOTE | 2018-02-28 12:12 | PN ---
[facility] CIWA - CIWA Score Nausea/Vomitin-No Nausea/No Vomiting Muscle Tremors: 3 Anxiety: 3 Agitation: 3 Paroxysmal Sweats: 2 Orientation: 0-Oriented Tacttile Disturbances: 0-None Auditory Disturbances: 0-None Visual Disturbances: 0-None Headache: 0-None Present CIWA-Ar Total Score: 11 S Progress Note (SOAP) Subjective: sweats shakes agitation Objective: 02/28/18 12:11 Vital Signs Temperature 97.2 F L 02/28/18 09:36 Pulse Rate 74 02/28/18 09:36 Respiratory Rate 18 02/28/18 09:36 Blood Pressure 167/96 02/28/18 09:36 O2 Sat by Pulse Oximetry (%) Laboratory Tests 02/26/18 02/26/18 02/26/18 09:43 16:25 21:59 WBC RBC Hgb Hct MCV MCH MCHC RDW Plt Count MPV Sodium Potassium Chloride Carbon Dioxide Anion Gap BUN Creatinine Creat Clearance w eGFR POC Glucometer 221 164 205 Random Glucose Calcium Total Bilirubin AST ALT Alkaline Phosphatase Total Protein Albumin RPR Titer 02/27/18 02/27/18 02/27/18 05:45 05:45 05:45 WBC 7.3 RBC 4.36 Hgb 14.4 Hct 43.9 MCV 100.8 H MCH 33.0 MCHC 32.7 RDW 14.7 Plt Count 218 MPV 8.2 Sodium 133 L Potassium 4.2 Chloride 99 Carbon Dioxide 22 Anion Gap 12 BUN 18 Creatinine 1.1 Creat Clearance w eGFR > 60 POC Glucometer Random Glucose 245 H Calcium 8.8 Total Bilirubin 0.4 AST 67 H ALT 59 Alkaline Phosphatase 195 H Total Protein 8.1 Albumin 3.9 RPR Titer Nonreactive 02/27/18 02/27/18 02/27/18 06:34 11:45 16:35 WBC RBC Hgb Hct MCV MCH MCHC RDW Plt Count MPV Sodium Potassium Chloride Carbon Dioxide Anion Gap BUN Creatinine Creat Clearance w eGFR POC Glucometer 152 202 211 Random Glucose Calcium Total Bilirubin AST ALT Alkaline Phosphatase Total Protein Albumin RPR Titer 02/27/18 02/28/18 02/28/18 20:39 05:59 11:15 WBC RBC Hgb Hct MCV MCH MCHC RDW Plt Count MPV Sodium Potassium Chloride Carbon Dioxide Anion Gap BUN Creatinine Creat Clearance w eGFR POC Glucometer 169 186 148 Random Glucose Calcium Total Bilirubin AST ALT Alkaline Phosphatase Total Protein Albumin RPR Titer aaox3 ambulating no acute distress Assessment: 02/28/18 12:12 withdrawal sx Plan: continue detox increase fluids
[2018-02-28] MEDS: ALBUTEROL SO4 8 GM HFA INHALER IH PRN ×2 (14:26→20:16)
[2018-02-28] MEDS ORDERED: INSULIN (NOVOLOG) ASPART 100 UNITS/ML 10ML VIAL ONE ×2 (16:34→21:51)
[2018-02-28] MEDS: IBUPROFEN 400 MG TABLET (FP) PO PRN (19:12)
[2018-02-28] MEDS: THIAMINE HCL 100 MG TABLET (FP) PO SCH (22:11)
[2018-02-28] MEDS: MELATONIN 5 MG TABLETS PO PRN (22:11)
[2018-03-01] MEDS: IBUPROFEN 400 MG TABLET (FP) PO PRN (00:39)
[2018-03-01] MEDS: ALBUTEROL SO4 8 GM HFA INHALER IH PRN ×2 (03:19→10:17)
[2018-03-01] MEDS: INSULIN SLIDING SCALE (NOVOLOG) 1 VIAL SQ SCH ×4 (06:26→21:31)
[2018-03-01] MEDS: chlordiazePOXIDE 5 MG CAPSULE PO SCH (06:26)
[2018-03-01] MEDS: METOPROLOL TARTRATE 50 MG TABLET (FP) PO SCH ×2 (10:12→21:31)
[2018-03-01] MEDS: PRENATAL VITAMINS W/ FOLIC ACID TABLET (FP) PO SCH (10:12)
[2018-03-01] MEDS: amLODIPine BESYLATE 10 MG TABLET (FP) PO SCH (10:12)
[2018-03-01] MEDS: FENOFIBRIC ACID 135 MG CAP PO SCH (10:13)
[2018-03-01] MEDS: HYDROCHLOROTHIAZIDE 25 MG TABLET (FP) PO SCH (10:13)
[2018-03-01] MEDS: chlordiazePOXIDE HCL 10 MG CAPSULE PO SCH ×3 (10:13→22:36)
--- NOTE | 2018-03-01 12:17 | PN ---
[facility] Progress Note (SOAP) Subjective: feeling better little anxiety Objective: 03/01/18 12:17 Vital Signs Temperature 96.8 F L 03/01/18 09:12 Pulse Rate 67 03/01/18 09:12 Respiratory Rate 18 03/01/18 09:12 Blood Pressure 150/87 03/01/18 09:12 O2 Sat by Pulse Oximetry (%) aaox3 ambulating no acute distress Assessment: 03/01/18 12:17 withdrawal sx Plan: continue detox increase fluids d/c in am
[2018-03-01] MEDS ORDERED: NICOTINE POLACRILEX 2 MG GUM BUC PRN (18:30)
[2018-03-01] MEDS ORDERED: INSULIN (NOVOLOG) ASPART 100 UNITS/ML 10ML VIAL ONE (21:27)
[2018-03-01] MEDS: THIAMINE HCL 100 MG TABLET (FP) PO SCH (21:31)
[2018-03-01] MEDS: MELATONIN 5 MG TABLETS PO PRN (22:38)
[2018-03-02] MEDS: hydrOXYzine PAMOATE 50 MG CAPSULE (FP) PO PRN (03:14)
[2018-03-02] MEDS: chlordiazePOXIDE HCL 10 MG CAPSULE PO SCH (05:53)
[2018-03-02] MEDS: IBUPROFEN 400 MG TABLET (FP) PO PRN (05:56)
[2018-03-02] MEDS ORDERED: INSULIN (NOVOLOG) ASPART 100 UNITS/ML 10ML VIAL ONE ×2 (06:47→11:11)
[2018-03-02] MEDS: INSULIN SLIDING SCALE (NOVOLOG) 1 VIAL SQ SCH ×2 (06:51→11:12)
--- NOTE | 2018-03-02 08:48 | DS ---
[facility] Detox Discharge Summary Admission Date: 02/26/18 Discharge Date: 03/02/18 - History Present History: Alcohol Dependence, Cannabis Dependence, Cocaine Dependence - Physical Exam Results Vital Signs: Vital Signs Temperature 97.0 F L 03/02/18 06:36 Pulse Rate 59 L 03/02/18 06:36 Respiratory Rate 18 03/02/18 06:36 Blood Pressure 152/70 03/02/18 06:36 O2 Sat by Pulse Oximetry (%) - Treatment Hospital Course: Detox Protocol Followed, Detoxed Safely, Responded well, Discharged Condition Good, Rehab Referral Accepted - Medication Discharge Medications: Ambulatory Orders Diphenhydramine HCl [Benadryl Capsule -] 50 mg PO HS PRN #0 capsule 02/11/15 Hypromellose 0.5% Opth Soln [Artificial Tears] 2 drop OU TID PRN #0 drops Hydrochlorothiazide [Hctz -] 12.5 mg PO DAILY #30 cap 03/09/15 Escitalopram Oxalate [Lexapro -] 10 mg PO DAILY #30 tablet 03/11/15 Albuterol Sulfate Inhaler - [Ventolin HFA Inhaler -] 2 puff IH QID PRN #1 inhaler 02/02/18 Amlodipine Besylate [Norvasc -] 10 mg PO DAILY #30 tablet 02/02/18 Fenofibric Acid [Trilipix -] 135 mg PO DAILY #30 cap 02/02/18 Hydrochlorothiazide [Hctz -] 25 mg PO DAILY 14 Days #14 tablet 02/02/18 Metoprolol Tartrate [Lopressor -] 100 mg PO BID #60 tablet 02/02/18 - Diagnosis (1) Alcohol dependence with uncomplicated withdrawal Current Visit: Yes Status: Chronic (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 Current Visit: No Status: Acute (3) Cannabis abuse Current Visit: Yes Status: Chronic (4) Cocaine dependence Current Visit: Yes Status: Chronic Qualifiers: Substance use status: uncomplicated Qualified Code(s): F14.20 - Cocaine dependence, uncomplicated (5) DM2 (diabetes mellitus, type 2) Current Visit: Yes Status: Chronic Qualifiers: Diabetes mellitus usp insulin use: unspecified 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 (6) Depression Current Visit: No Status: Acute (7) History of pancreatitis Current Visit: No Status: Acute (8) Insomnia Current Visit: No Status: Acute (9) Nicotine abuse Current Visit: Yes Status: Chronic (10) Pancreatitis, acute Current Visit: Yes Status: Chronic Qualifiers: Pancreatitis type: alcohol induced (11) Substance induced mood disorder Current Visit: No Status: Acute (12) Asthma Current Visit: Yes Status: Chronic Qualifiers: Asthma severity: mild Asthma complication type: uncomplicated (13) GERD (gastroesophageal reflux disease) Current Visit: Yes Status: Chronic Qualifiers: Esophagitis presence: without esophagitis Qualified Code(s): K21.9 - Gastro -esophageal reflux disease without esophagitis (14) Hyperlipidemia Current Visit: Yes Status: Chronic Qualifiers: Hyperlipidemia type: pure hypercholesterolemia Qualified Code(s): E78.00 - Pure hypercholesterolemia, unspecified; E78.0 - Pure hypercholesterolemia (15) Hypertension Current Visit: Yes Status: Chronic Qualifiers: Hypertension type: essential hypertension Qualified Code(s): I10 - Essential (primary) hypertension (16) Hyperglycemia Current Visit: Yes Status: Chronic (17) Alcohol dependence with uncomplicated withdrawal Current Visit: Yes Status: Chronic - AMA Did Patient Leave Against Medical Advice: No
[2018-03-02] MEDS: FENOFIBRIC ACID 135 MG CAP PO SCH (10:22)
[2018-03-02] MEDS: amLODIPine BESYLATE 10 MG TABLET (FP) PO SCH (10:23)
[2018-03-02] MEDS: METOPROLOL TARTRATE 50 MG TABLET (FP) PO SCH (10:23)
[2018-03-02] MEDS: PRENATAL VITAMINS W/ FOLIC ACID TABLET (FP) PO SCH (10:23)
[2018-03-02] MEDS: HYDROCHLOROTHIAZIDE 25 MG TABLET (FP) PO SCH (10:23)
[2018-03-02 14:33] VITALS: BP 154/83; PULSE 62; TEMP 98.1
== END 2018-03-02 14:45 | disposition home or self-care (01) | DRG 774 ==
LOC: YASAS 08:24 → Y6N 10:09
PROC: HZ2ZZZZ Detoxification Services for Substance Abuse Treatment (ICD-10-PCS; principal; 2018-02-26)
DX: F10.230 Alcohol dependence with withdrawal, uncomplicated (principal); F14.20 Cocaine dependence, uncomplicated; F12.20 Cannabis dependence, uncomplicated; Z72.0 Tobacco use; F19.24 Other psychoactive substance dependence with psychoactive substance-induced mood disorder; F19.282 Other psychoactive substance dependence with psychoactive substance-induced sleep disorder; F10.24 Alcohol dependence with alcohol-induced mood disorder; E11.65 Type 2 diabetes mellitus with hyperglycemia; I10 Essential (primary) hypertension; E78.00 Pure hypercholesterolemia, unspecified; K21.9 Gastro-esophageal reflux disease without esophagitis; K85.20 Alcohol induced acute pancreatitis without necrosis or infection; J45.909 Unspecified asthma, uncomplicated
CPT/HCPCS: 36415; 80053; 82962; 85027; 86593; J0735

== ENCOUNTER 2018-03-29 13:35 | Observation (INO) | payer OTHER ==
--- NOTE | 2018-03-29 14:31 | PDOC ---
History of Present Illness - General Chief Complaint: Alcohol intoxication Stated Complaint: Alcohol intoxication Time Seen by Provider: 03/29/18 14:18 - History of Present Illness Initial Comments: 03/29/18 14:41 Mr. Morrison is a 52 yo male w/ pmh of alcohol abuse, cannabis abuse, cocaine dependence, DMII, Depression, pancreatitis, asthma, GERD, HLD, HTN who presents for evaluation of 1 day history of chest pain, epigastric pain, nausea, vomiting , fevers, and chills. He also reports some diarrhea yesterday. Patient reports he was previously in his normal state of health until yesterday when symptoms occurred.Reports drink was yesterday, patient presents from detox where he was taken after presenting from [facility] with complaints of "my whole body hurts." The patient denies shortness of breath, headache and dizziness. Denies constipation. Denies dysuria, frequency, urgency and hematuria. Past History - Past Medical History Allergies/Adverse Reactions: Allergies Allergy/AdvReac Type Severity Reaction Status Date / Time No Known Allergies Allergy Verified 03/29/18 11:43 Home Medications: Ambulatory Orders NK [No Known Home Medication] 03/29/18 Anemia: No Asthma: Yes Cancer: No Cardiac Disorders: No CVA: No COPD: No CHF: No Dementia: No Diabetes: Yes GI Disorders: Yes (panceatitis) Disorders: No HTN: Yes Hypercholesterolemia: Yes (FENOFIBRATE 145 MG DAILY) Kidney Stones: No Liver Disease: Yes (ALCOHOL HEPATITIS WITHOUT ASCITES ) Seizures: No Thyroid Disease: No - Surgical History Abdominal Surgery: No Appendectomy: No Cardiac Surgery: No Cholecystectomy: No Lung Surgery: No Neurologic Surgery: No Orthopedic Surgery: No - Reproductive History Testicular Surgery: No - Suicide/Smoking/Psychosocial Hx Smoking History: Current some day smoker Have you smoked in the past 12 months: Yes Number of Cigarettes Smoked Daily: 1 Cigars Per Day: 0 'Breaking Loose' booklet given: 02/26/18 Hx Alcohol Use: Yes Drug/Substance Use Hx: Yes Substance Use Type: Alcohol, Cocaine, Marijuana Hx Substance Use Treatment: Yes ([facility] d/c 03/02/18) Review of Systems - Review of Systems Comments:: 03/29/18 14:53 GENERAL/CONSTITUTIONAL: +Nonspecific fever/chills as described. No weakness. HEAD, EYES, EARS, NOSE AND THROAT: No change in vision. No ear pain or discharge. No sore throat. CARDIOVASCULAR: No chest pain or shortness of breath RESPIRATORY: No cough, wheezing, or hemoptysis. GASTROINTESTINAL: +N/V/D yesterday. No constipation. GENITOURINARY: No dysuria, frequency, or change in urination. MUSCULOSKELETAL: +Diffuse body aches. SKIN: No rash NEUROLOGIC: No headache, vertigo, loss of consciousness, or change in strength/ sensation. ENDOCRINE: No increased thirst. No abnormal weight change HEMATOLOGIC/LYMPHATIC: No anemia, easy bleeding, or history of blood clots. ALLERGIC/IMMUNOLOGIC: No hives or skin allergy. *Physical Exam - Physical Exam Comments: 03/29/18 14:55 GENERAL: +Patient acutely intoxicated. +Arousable with verbal stimulus. Fully oriented, in no acute distress HEAD: No signs of trauma, normocephalic, atraumatic EYES: PERRLA, EOMI, sclera anicteric, conjunctiva clear ENT: Auricles normal inspection, hearing grossly normal, nares patent, oropharynx clear without exudates. Moist mucosa NECK: Normal ROM, supple, no lymphadenopathy, JVD, or masses LUNGS: +Midline TTP. Diffuse wheezes appreciated. No distress, speaks full sentences. HEART: Regular rate and rhythm, normal S1 and S2, no murmurs, rubs or gallops, peripheral pulses normal and equal bilaterally. ABDOMEN: +Epigastric TTP. Soft, normoactive bowel sounds. No guarding, no rebound. No masses EXTREMITIES: +2+ Pedal edema noted bilaterally to knees. Otherwise normal inspection, Normal range of motion, no edema. No clubbing or cyanosis. NEUROLOGICAL: +Unable to assess further. SKIN: Warm, Dry, normal turgor, no rashes or lesions noted. ED Treatment Course - LABORATORY CBC & Chemistry Diagram: 03/30/18 05:30 03/30/18 06:00 Medical Decision Making - Medical Decision Making 03/29/18 15:14 Mr. Morrison is a 52 yo male w/ pmh as described who presents for evaluation of symptoms concerning for ACS vs. pancreatitis vs. flu vs. liver failure. Patient workup started accordingly. Given chest pain patient will likely come in for observation to hospital. 03/29/18 19:07 Patient signed out to Dr. Huls for further evaluation. *DC/Admit/Observation/Transfer Diagnosis at time of Disposition: Chest pain Qualifiers: Chest pain type: unspecified Qualified Code(s): R07.9 - Chest pain, unspecified Altered mental status Qualifiers: Altered mental status type: unspecified Qualified Code(s): R41.82 - Altered mental status, unspecified - Discharge Dispostion Condition at time of disposition: Stable - Referrals - Patient Instructions - Post Discharge Activity
[2018-03-29] MEDS ORDERED: ONDANSETRON 4 MG/2 ML VIAL IVPUSH ONE (14:50)
--- NOTE | 2018-03-29 15:36 | PDOC ---
Attending Attestation - Resident Resident Name: Edmund Varela - ED Attending Attestation I have performed the following: I have examined & evaluated the patient, The case was reviewed & discussed with the resident, I agree w/resident's findings & plan, Exceptions are as noted - Physicial Exam PE: 03/29/18 15:34 awake, drowsy, disheveled. lungs clear bilaterally heart rrr no mrg abd soft nt nd obese. ext brawning edema bilaterally. feet 2 + dp/ pt pulses. malodorous, mild skin breakdown plantar surface. nuero alert oriented. speech slurred. - Medical Decision Making 03/29/18 15:35 52 yo male h/o etoh abuse, here from [facility] c/o epigastric and chest pain. h/ o pancreatitis, etoh abuse, chf, edema from liver failure, hypoalbuminemia. differential angina, gerd, pna, reflux, pancreatitis gastritis. plan antacid, zofran ivf, cxr ekg labs ck . <Lacey Cox - Last Filed: 03/29/18 15:33> - HPI HPI: 03/29/18 15:37 Patient is a 52 year old male with a significant past medical history of Diabetes type 2, GERD, HLD, HTN, who presents to the ED with complaints of chest pain that dickson 1 day ago. Patient reports experiencing chest pain as well as associated symptoms of head pain, epigastric pain, nausea, vomiting, fevers and chills. He reports being healthy until yesterday when the initial symptoms began, prompting him to go to [facility] for evaluation. Patient arrived to ED from detox, where he states he went after being discharged from [facility]. Denies chest pain, sob. Denies nausea, vomiting. Denies fevers, chills. Denies dysuria, hematuria. Denies constipation, Allergies: Social history: alcohol abuse, cannabis abuse, cocaine dependence Surgical history: None PMD: None <Srinivasa Guevara - Last Filed: 03/29/18 15:37>
[2018-03-29 15:53] VITALS: BMI 41.1
[2018-03-29] MEDS ORDERED: ONDANSETRON 4 MG/2 ML VIAL ONE (16:07)
[2018-03-29 16:12] LABS: BASO % 0.8 % (0-2.0); EOS % 2.5 % (0-4.5); HEMATOCRIT 40.6 % (35.4-49); LYMPH % 16.6 % (8-40); MCH 34.2 pg (25.7-33.7); MCHC 34.5 g/dl (32.0-35.9); MEAN CELL VOLUME 99.1 fl (80-96); MEAN PLT VOLUME 6.9 fl (7.5-11.1); MONO % 13.8 % (3.8-10.2); NEUT % 66.3 % (42.8-82.8); PLATELET COUNT 255 K/MM3 (134-434); RDW 13.3 % (11.9-15.9); WHITE BLOOD COUNT 7.3 K/mm3 (4.0-10.0)
[2018-03-29 16:45] LABS: ALBUMIN 3.4 g/dl (3.4-5.0); ALK PHOS 128 U/L (45-117); ANION GAP 7 MMOL/L (8-16); BILIRUBIN,TOTAL 0.6 mg/dL (0.2-1); BLOOD UREA NITROGEN 10 mg/dL (7-18); CALCIUM 8.9 mg/dL (8.5-10.1); CHLORIDE 101 mmol/L (98-107); CO2 29 mmol/L (21-32); GLUCOSE,RANDOM 160 mg/dL (74-106); LIPASE 79 U/L (73-393); N-TERMINAL BNP 954.4 pg/ml (5-125); POTASSIUM 4.7 mmol/L (3.5-5.1); SGOT/AST 62 U/L (15-37); SGPT/ALT 50 U/L (13-61); SODIUM 137 mmol/L (136-145); TOT PROT 7.3 g/dl (6.4-8.2)
--- NOTE | 2018-03-29 20:14 | PDOC ---
*Physical Exam - Vital Signs Last Vital Signs Temp Pulse Resp BP Pulse Ox 98.9 F 94 H 22 H 173/96 H 100 03/29/18 13:35 03/29/18 13:35 03/29/18 13:35 03/29/18 13:35 03/29/18 13:35 ED Treatment Course - LABORATORY CBC & Chemistry Diagram: 03/29/18 16:04 03/29/18 16:00 - ADDITIONAL ORDERS Additional order review: Laboratory Results 03/29/18 03/29/18 16:00 15:55 Sodium 137 Potassium 4.7 Chloride 101 Carbon Dioxide 29 Anion Gap 7 L BUN 10 Creatinine 1.0 Creat Clearance w eGFR > 60 POC Glucometer 167.61256 Random Glucose 160 H Calcium 8.9 Total Bilirubin 0.6 AST 62 H ALT 50 Alkaline Phosphatase 128 H Creatine Kinase 112 Troponin I 0.05 B-Natriuretic Peptide 954.4 H Total Protein 7.3 Albumin 3.4 Lipase 79 Alcohol, Quantitative < 3.0 03/29/18 03/29/18 16:04 15:55 RBC 4.10 MCV 99.1 H MCHC 34.5 RDW 13.3 MPV 6.9 L D Neutrophils % 66.3 Lymphocytes % 16.6 D Monocytes % 13.8 H Eosinophils % 2.5 Basophils % 0.8 POC Glucometer [phone] - Medications Given in the ED: ED Medications Discontinued Medications Generic Name Dose Route Start Last Admin Trade Name Freq PRN Reason Stop Dose Admin Ondansetron HCl 4 mg 03/29/18 14:50 03/29/18 16:05 Zofran Injection IVPUSH 03/29/18 14:51 4 mg ONCE ONE Administration Medical Decision Making - Medical Decision Making 03/29/18 20:[address] Varela. Patient is 52M with pmh of alcohol abuse, cannabis abuse, cocaine dependence, DMII, Depression, pancreatitis, asthma, GERD , HLD, HTN who presents for evaluation of 1 day history of chest pain, epigastric pain, nausea, vomiting, fevers, and chills. Vitals normal. Labs normal. CT head normal. Pending CXR and likely obs admission. 03/29/18 20:41 CXR shows no acute cardiopulmonary process. EKG shows normal sinus rhythm with rate of 91. No st elevations/depressions. RBBB and LAFB pattern, similar to prior EKG. Left axis. QRS widened to 154. Given aspirin. Given fluids, patient still has not given urine for utox. Complaining of pain to his left shoulder, worse with movement, atypical. 03/29/18 20:58 Patient reassessed, complaining of pain to his left shoulder, reproducible. Nontender belly. Soft supple neck. Do not believe LP is necessary at this time. Patient accepted to tele obs. *DC/Admit/Observation/Transfer Diagnosis at time of Disposition: Chest pain, Altered mental status - Discharge Dispostion Condition at time of disposition: Stable Decision to Admit order: Yes - Referrals - Patient Instructions - Post Discharge Activity
[2018-03-29] MEDS ORDERED: SODIUM CHLORIDE 1,000 ML IV STA (20:40)
[2018-03-29] MEDS ORDERED: ASPIRIN 81 MG CHEWABLE TABLETS PO ONE (20:40)
[2018-03-29] MEDS ORDERED: ASPIRIN 81 MG CHEWABLE TABLETS ONE (21:08)
--- NOTE | 2018-03-29 21:23 | PN ---
Teaching Attending Note Name of Resident: John Stallworth ATTENDING PHYSICIAN STATEMENT I saw and evaluated the patient. I reviewed the resident's note and discussed the case with the resident. I agree with the resident's findings and plan as documented. SUBJECTIVE: Seen and examined; please refer to resident note for further historical information. Briefly, he presents from [facility] where he was for detox (was sent there for [facility]-records pending). He is a poor historian. He developed CP yesterday for ~5 mins that resolved but came back today longer. Occurred at rest so he was sent here. At that time his WD sx were controlled. He endorses nausea, vomitting, and diarrhea to the resident but didn't mention it to me. He has what sounds to be stable angina sx at baseline with some intermittent CP at rest. He has poor OP followup. He is chest pain free at the time of encounter. It is somewhat atypical. BP elevated; rechecked and 150s SBP. He hasn't taken any of his medications today. Calling [facility] to obtain rest of med list. In terms of cardiac issues, he denies following with cardiology or having any prior cath/stress test/echo. He interestingly reveals that his legs have been swollen for some time and that he was at [facility] and was transfered to [facility] from there. He admits he was seen for similar issues at the aforementioned hospital but doesn't know the workup. 10 sys ROS done and neg aside from HPI PMH and PSH Reviewed (EtOH/Cocaine/Marijuana Dependence, DM, HTN, HLD, Noncompliance, Treated HCV, Tobacco abuse, Asthma, Prior pancreatitis, prior EtOH related syncope, GERD) FH asked and noncontributory Social history pertinent for recent rehab stay, EtOH/tobacco/polysubstance abuse Medication list reviewed; pending reconciliation OBJECTIVE: VS, labs, imaging reviewed NAD, AAO, Resting comfortably in bed RRR s1/2 no mgr; CP reproducible around the sternum Legs swollen sym b/l with 3+ pitting edema and chronic venous stasis changes Lungs CTAB w/ sym exp NT ND +BS CN2-12 wnl, no fnd Labs show unremarkable CBC but elevated mcv at 99 with unremarkable chemistry aside from elevated glucose to 160. AST/ALT 62/50. BNP 954 with initial trop 0.05. Negative lipase/EtOH/flu. Past labs show negative HIV and RPR. CXR without joann acute disease; final read pending CT head negative for acute disease; chronic microvascular changes noted EKG reviewed Telemetry reviewed Echo pending; no prior CV studies in our system aside from prior EKGs which were also noted ASSESSMENT AND PLAN: Patient presents from [facility] with chest pain; he has multiple risk factors. Found to have elevated BNP 1) Chest Pain -Multiple risk factors (tobacco, EtOH, PMH) but atypical pain; li have moderate pretest probability. Initial troponin negative. -Monitor on tele, trend CE's. Check echo to r/o wma's. Based on results of his inpt workup we can discuss further testing as further lab results made available and based on the old records we are working to obtain from his last admit -No prior CV studies to review aside from old EKG which is mostly unchanged from current study. Checking lipids, A1c, TSH. -BNP is elevated; suspect for CHF element. This could also give him sx. 2) Elevated BNP, risk for cardiomyopathy -Seen and examined; found to have 3+ pitting edema. He is at risk for cardiomyopathy from etoh, etc. Was admitted at OSH for similar sx. -Check echo, monitor QD weights and strict Is and Os. -Giving 40 Lasix x1 overnight and monitoring for response and renal function. Will wait to see how his output is before scheduling further diuresis, but he will likely need some. -Further med adjustments, etc. 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 Not acutely WDing -Check NH4 level; no asterixis 4) Tobacco Abuse -Firer Locomotive Crane prior to DC 5) DM -Check A1c, SSI while inpt 6) Uncontrolled HTN -Didnt take his home meds this AM; will administer and recheck. 7) Hx HLD -Check lipids; reconcile and continue home meds 8) Hx Noncompliance -Firer Locomotive Crane; refer to residency clinic 9) Hx Asthma -No exacerbation; recommend OP PFTs 10) Hx HCV, treated -FU OP 11) Hx GERD -Reconcile and continue home meds -If cardiac NARAYAN negative can consider as potential cause of noncardiac chest discomfort 12) Elevated MCV -Check B12, folate. Likely related to EtOH. 13) Morbid Obesity -Firer Locomotive Crane; consider bariatric referral (BMI >40) FENA -PO fluids -PRN replete -Cardiac diet; NPO for now as cardiac NARAYAN comes back and then will need to discuss if ST needed based on results -As tolerated Full Code
[2018-03-29] MEDS ORDERED: hydrALAZINE HCL 20 MG/ML VIAL IVPUSH ONE (22:05)
[2018-03-29 23:00] LABS: URINE APPEARANCE CLEAR; URINE BILIRUBIN NEGATIVE (<2.0 mg/dL); URINE COLOR YELLOW; URINE GLUCOSE (UA) NEGATIVE (NEGATIVE); URINE KETONE NEGATIVE (NEGATIVE); URINE LEUK ESTERASE NEGATIVE (NEGATIVE); URINE NITRITE NEGATIVE (NEGATIVE); URINE PROTEIN NEGATIVE (NEGATIVE); URINE UROBILINOGEN NEGATIVE mg/dL (0.2-1.0)
[2018-03-29 23:28] LABS: COCAINE, UR NEGATIVE ng/ml (CUTOFF=300); METHADONE, UR NEGATIVE ng/ml (CUTOFF=300); OPIATES, URI NEGATIVE ng/ml (CUTOFF=300); PHENCYCLIDINE,URINE NEGATIVE ng/ml (CUTOFF=25); URINE AMPHETAMINES NEGATIVE ng/ml (CUTOFF=500); URINE BARBITURATES NEGATIVE ng/ml (CUTOFF=200)
[2018-03-29 23:29] LABS: URINE BENZODIAZEPINES POSITIVE ng/ml (CUTOFF=200)
--- NOTE | 2018-03-29 23:53 | HP ---
CHIEF COMPLAINT: Chest Pain PCP: None HISTORY OF PRESENT ILLNESS: 52 y/o M with PMHx of Polysubstance abuse (EtOH, Cannabis, Cocaine), DM, Depression, Asthma, GERD, HLD, HTN, Chronic Lower extremity edema presents which Chest pain. Patient is lethargic but arousable during my interview. Patient was recently discharged from [facility] (patient unable to explain hospital course) to [facility] for Detox. While at Detox, the chest pain came on all of a sudden while he was seated and he describes it as 7/10, constant ache that is midsternal, does not radiate and is worse with breathing and shoulder movements. Patient mentions an episode of pain yesterday that lasted for a few minutes however today the pain lasted much longer. Patient has not tried any OTC meds for the pain. He mentions having this pain in the past but he does not recall how it was managed. Additionally, he mentions he is unable to ambulate up stairs because of SOB and experiences Exertional Angina. 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 Additionally endorses chills, nausea, 2 episodes of NBNB Vomiting, 2 episodes of watery, soft BM's, and headache. Denies Fevers, constipation, blurry vision. ER course was notable for: (1) ASA 162mg (2) 1L NS (3) Zofran Recent Travel: Denies PAST MEDICAL HISTORY: Polysubstance abuse (EtOH, Cannabis, Cocaine), DM, Depression, Asthma, GERD, HLD , HTN, Chronic Lower extremity edema PAST SURGICAL HISTORY: Denies Social History: Smokin pack per week Alcohol: "Whatever I can get my hands on" Drugs: Cannabis, Cocaine Ambulation: Says he should use a cane Family History: HTN Allergies No Known Allergies Allergy (Verified 03/29/18 11:43) HOME MEDICATIONS: Home Medications Medication Instructions Recorded Diphenhydramine HCl [Benadryl 50 mg PO HS PRN #0 capsule 02/11/15 Capsule -] Hypromellose 0.5% Opth Soln 2 drop OU TID PRN #0 drops 02/11/15 [Artificial Tears] Hydrochlorothiazide [Hctz -] 12.5 mg PO DAILY #30 cap 03/09/15 Escitalopram Oxalate [Lexapro -] 10 mg PO DAILY #30 tablet 03/11/15 Albuterol Sulfate Inhaler - 2 puff IH QID PRN #1 inhaler 02/02/18 [Ventolin HFA Inhaler -] Amlodipine Besylate [Norvasc -] 10 mg PO DAILY #30 tablet 02/02/18 Fenofibric Acid [Trilipix -] 135 mg PO DAILY #30 cap 02/02/18 Hydrochlorothiazide [Hctz -] 25 mg PO DAILY 14 Days #14 tablet 02/02/18 Metoprolol Tartrate [Lopressor -] 100 mg PO BID #60 tablet 02/02/18 REVIEW OF SYSTEMS As per HPI PHYSICAL EXAMINATION Vital Signs - 24 hr 03/29/18 13:35 Temperature 98.9 F Pulse Rate 94 H Respiratory 22 H Rate Blood Pressure 173/96 H O2 Sat by Pulse 100 Oximetry (%) GENERAL: Lethargic but arousable to verbal stimuli, Malodorous, NAD HEAD: NCAT EARS, NOSE, THROAT: Oropharynx clear without exudates. Moist mucous membranes. NECK: No JVD LUNGS: CTA b/l, No wheezes, no crackles HEART: Regular rate and rhythm, normal S1 and S2 without murmur CHEST: Reproducible, Midsternal tenderness to palpation ABDOMEN: Soft, nontender, not distended, + bowel sounds, no guarding MUSCULOSKELETAL: No CVA tenderness. UPPER EXTREMITIES: 2+ pulses, Left Shoulder pain with movement LOWER EXTREMITIES: 2+ pulses, 2+ pitting edema. SKIN: Chronic Lower extremity dry skin with scaling Laboratory Results - last 24 hr 03/29/18 03/29/18 03/29/18 15:52 15:55 16:00 WBC RBC Hgb Hct MCV MCH MCHC RDW Plt Count MPV Absolute Neuts (auto) Neutrophils % Lymphocytes % Monocytes % Eosinophils % Basophils % Nucleated RBC % Sodium 137 Potassium 4.7 Chloride 101 Carbon Dioxide 29 Anion Gap 7 L BUN 10 Creatinine 1.0 Creat Clearance w eGFR > 60 POC Glucometer 167.93058 Random Glucose 160 H Calcium 8.9 Total Bilirubin 0.6 AST 62 H ALT 50 Alkaline Phosphatase 128 H Creatine Kinase 112 Troponin I 0.05 B-Natriuretic Peptide 954.4 H Total Protein 7.3 Albumin 3.4 Lipase 79 Urine Color Urine Appearance Urine pH Ur Specific [place] Urine Protein Urine Glucose (UA) Urine Ketones Urine Blood Urine Nitrite Urine Bilirubin Urine Urobilinogen Ur Leukocyte Esterase Alcohol, Quantitative < 3.0 Influenza A (Rapid) Negative Influenza B (Rapid) Negative 03/29/18 03/29/18 03/29/18 16:04 22:37 22:47 WBC 7.3 RBC 4.10 Hgb 14.0 Hct 40.6 MCV 99.1 H MCH 34.2 H MCHC 34.5 RDW 13.3 Plt Count 255 MPV 6.9 L D Absolute Neuts (auto) 4.9 Neutrophils % 66.3 Lymphocytes % 16.6 D Monocytes % 13.8 H Eosinophils % 2.5 Basophils % 0.8 Nucleated RBC % 0 Sodium Potassium Chloride Carbon Dioxide Anion Gap BUN Creatinine Creat Clearance w eGFR POC Glucometer 121.31923 Random Glucose Calcium Total Bilirubin AST ALT Alkaline Phosphatase Creatine Kinase Troponin I B-Natriuretic Peptide Total Protein Albumin Lipase Urine Color Yellow Urine Appearance Clear Urine pH 7.0 Ur Specific [place] 1.016 Urine Protein Negative Urine Glucose (UA) Negative Urine Ketones Negative Urine Blood Negative Urine Nitrite Negative Urine Bilirubin Negative Urine Urobilinogen Negative Ur Leukocyte Esterase Negative Alcohol, Quantitative Influenza A (Rapid) Influenza B (Rapid) ASSESSMENT/PLAN: 52 y/o M with PMHx of Polysubstance abuse (EtOH, Cannabis, Cocaine), DM, Depression, Asthma, GERD, HLD, HTN, Chronic Lower extremity edema presents which Chest pain #Atypical Chest Pain -Reproducible, worse with movement, likely MSK however patient with multiple risk factors and must r/o ACS -Initial Troponin 0.05; Trend -EKG: Bifasicular block, VR 91, QTc 563, No RAFAELA/STD -CXR no infiltrate or efffusion -Given 162mg ASA in ED -ASA 81mg Daily -Echo, TSH, Lipid, A1c ordered -NPO pending cardiac workup -Tele Monitoring #Elevated BNP -Currently not experiencing signs/sx's of CHF exacerbation -Found to have 2+ pitting edema, given Lasix 40mg IV x 1 overnight -Echo ordered -Consider further diuresis pending Echo results -Daily weights, Strict I&Os, Monitor renal function #Hx of Polysubstance abuse (EtOH, Cannabis, Cocaine, Tobacco) -Currently not experiencing signs/sx's of withdrawal -Park care staff mentions patient was only seen in the admitting area previously , and not admitted to the floors -Webbing Tacker to cease substance use -UTox, Ammonia level pending -Thiamine 100mg, Folic acid 1mg daily -Consider Nicotine patch if needed -Continue to monitor CIWA score and implement Librium Protocol if necessary -Would benefit from Detox consult, [facility] admission evaluation #HTN, Uncontrolled -Did not take home dose meds in AM, Likely a component of withdrawal also -Given Hydralazine 10mg IV x1, BP on recheck was 164/96 -Will need Med-rec to begin his home regimen #Elevated MCV -Likely due to EtOH abuse -Will check B12, Folate #Morbid Obesity -BMI 41.2 -Will Webbing Tacker on exercise and dietary regimen -Consider Metal Casting Trades Worker consult and Bariatric surgery referral #Hx of DM -A1c pending -ISS BGMs ACHS #Hx of HLD -Lipid panel pending -Will need Med-rec to begin his home regimen #Hx of Asthma -Stable, Currently not experiencing signs/sx's of exacerbation -Would benefit from Outpatient Pulm follow up and PFTs #Hx of GERD -Will need Med-rec to begin his home regimen #FEN -PO fluids -Lytes WNL -NPO #PPx -DVT: Lovenox Dispo: Tele-obs, will need med-rec and would benefit from referral to residency clinic Visit type - Emergency Visit Emergency Visit: Yes ED Registration Date: 03/29/18 Care time: The patient presented to the Emergency Department on the above date and was hospitalized for further evaluation of their emergent condition. - New Patient This patient is new to me today: Yes Date on this admission: 04/02/18 - Critical Care Critical Care patient: No
[2018-03-30] MEDS ORDERED: hydrALAZINE HCL 20 MG/ML VIAL ONE (00:47)
[2018-03-30] MEDS ORDERED: FUROSEMIDE 40 MG/4 ML INJECTABLE VIAL IVPUSH ONE (04:53)
[2018-03-30] MEDS ORDERED: NITROGLYCERIN SUBLINGUAL 1/200 0.3 MG BTL SL ONE (05:48)
[2018-03-30] MEDS ORDERED: NITROGLYCERIN SUBLINGUAL 1/150 0.4 MG TAB ONE (05:56)
[2018-03-30] MEDS ORDERED: FUROSEMIDE 40 MG/4 ML INJECTABLE VIAL ONE (05:57)
[2018-03-30] MEDS ORDERED: NITROGLYCERIN SUBLINGUAL 1/150 0.4 MG TAB SL ONE (06:04)
[2018-03-30 06:20] LABS: EOS % 2.1 % (0-4.5); HEMATOCRIT 41.5 % (35.4-49); HEMOGLOBIN 13.5 GM/dL (11.7-16.9); LYMPH % 12.8 % (8-40); MCH 32.6 pg (25.7-33.7); MCHC 32.5 g/dl (32.0-35.9); MEAN CELL VOLUME 100.2 fl (80-96); MEAN PLT VOLUME 6.8 fl (7.5-11.1); MONO % 11.2 % (3.8-10.2); NEUT % 72.9 % (42.8-82.8); PLATELET COUNT 236 K/MM3 (134-434); RBC 4.14 M/mm3 (4.00-5.60); RDW 13.7 % (11.9-15.9); WHITE BLOOD COUNT 8.7 K/mm3 (4.0-10.0)
[2018-03-30 07:00] LABS: ALBUMIN 3.3 g/dl (3.4-5.0); ALK PHOS 127 U/L (45-117); ANION GAP 7 MMOL/L (8-16); BILIRUBIN,TOTAL 0.7 mg/dL (0.2-1); BLOOD UREA NITROGEN 13 mg/dL (7-18); CALCIUM 8.3 mg/dL (8.5-10.1); CHLORIDE 104 mmol/L (98-107); CO2 28 mmol/L (21-32); CREATININE 1.1 mg/dL (0.55-1.3); GLUCOSE,RANDOM 146 mg/dL (74-106); MAGNESIUM 2.1 mg/dL (1.8-2.4); PHOSPHOROUS 2.6 mg/dL (2.5-4.9); POTASSIUM 3.9 mmol/L (3.5-5.1); SGOT/AST 41 U/L (15-37); SGPT/ALT 41 U/L (13-61); SODIUM 140 mmol/L (136-145); TOT PROT 6.9 g/dl (6.4-8.2)
[2018-03-30 08:10] LABS: CHOLESTEROL 169 mg/dL (50-200); HDL CHOLESTEROL 37 mg/dL (40-60); TRIGLYCERIDES 326 mg/dL (0-150)
[2018-03-30] MEDS ORDERED: METOPROLOL TARTRATE 50 MG TABLET (FP) PO ONE (08:32)
[2018-03-30] MEDS ORDERED: amLODIPine BESYLATE 10 MG TABLET (FP) PO ONE (08:32)
[2018-03-30] MEDS ORDERED: chlordiazePOXIDE HCL 25 MG CAPSULE PO PRN ×2 (08:48→11:15)
[2018-03-30] MEDS ORDERED: amLODIPine BESYLATE 5 MG TABLET (FP) ONE (09:01)
[2018-03-30] MEDS ORDERED: METOPROLOL TARTRATE 50 MG TABLET (FP) ONE (09:02)
[2018-03-30] MEDS: INSULIN SLIDING SCALE (NOVOLOG) 1 VIAL SQ SCH ×4 (09:40→22:31)
--- NOTE | 2018-03-30 09:59 | PN ---
Physical Exam: SUBJECTIVE: Patient seen and examined at bedside. No acute events overnight. Pt difficult to understand, lethargic, but responds to commands. OBJECTIVE: Vital Signs Temperature 98.0 F 03/30/18 07:00 Pulse Rate 86 03/30/18 07:00 Respiratory Rate 16 03/30/18 07:00 Blood Pressure 175/101 H 03/30/18 07:00 O2 Sat by Pulse Oximetry (%) 96 03/30/18 07:00 GENERAL: Lethargic but arousable to verbal stimuli, Malodorous, NAD HEAD: NCAT EARS, NOSE, THROAT: Oropharynx clear without exudates. Moist mucous membranes. NECK: No JVD LUNGS: CTA b/l, No wheezes, no crackles HEART: Regular rate and rhythm, normal S1 and S2 without murmur CHEST: Reproducible, Midsternal tenderness to palpation ABDOMEN: Soft, nontender, not distended, + bowel sounds, no guarding MUSCULOSKELETAL: No CVA tenderness. UPPER EXTREMITIES: 2+ pulses, Left Shoulder pain with movement LOWER EXTREMITIES: 2+ pulses, 2+ pitting edema. SKIN: Chronic Lower extremity dry skin with scaling CBCD WBC 8.7 K/mm3 (4.0-10.0) 03/30/18 05:30 RBC 4.14 M/mm3 (4.00-5.60) 03/30/18 05:30 Hgb 13.5 GM/dL (11.7-16.9) 03/30/18 05:30 Hct 41.5 % (35.4-49) 03/30/18 05:30 MCV 100.2 fl (80-96) H 03/30/18 05:30 MCHC 32.5 g/dl (32.0-35.9) 03/30/18 05:30 RDW 13.7 % (11.9-15.9) 03/30/18 05:30 Plt Count 236 K/MM3 (134-434) 03/30/18 05:30 MPV 6.8 fl (7.5-11.1) L 03/30/18 05:30 CMP Sodium 140 mmol/L (136-145) 03/30/18 06:00 Potassium 3.9 mmol/L (3.5-5.1) 03/30/18 06:00 Chloride 104 mmol/L (98-107) 03/30/18 06:00 Carbon Dioxide 28 mmol/L (21-32) 03/30/18 06:00 Anion Gap 7 MMOL/L (8-16) L 03/30/18 06:00 BUN 13 mg/dL (7-18) 03/30/18 06:00 Creatinine 1.1 mg/dL (0.55-1.3) 03/30/18 06:00 Creat Clearance w eGFR > 60 (>60) 03/30/18 06:00 Calcium 8.3 mg/dL (8.5-10.1) L 03/30/18 06:00 Total Bilirubin 0.7 mg/dL (0.2-1) 03/30/18 06:00 AST 41 U/L (15-37) H 03/30/18 06:00 ALT 41 U/L (13-61) 03/30/18 06:00 Alkaline Phosphatase 127 U/L (45-117) H 03/30/18 06:00 Total Protein 6.9 g/dl (6.4-8.2) 03/30/18 06:00 Albumin 3.3 g/dl (3.4-5.0) L 03/30/18 06:00 Active Medications Aspirin (Asa -) 81 mg PO DAILY [facility] Last Admin: 03/30/18 10:46 Dose: 81 mg Chlordiazepoxide HCl (Librium -) 25 mg PO Q6H PRN PRN Reason: WITHDRAWAL(CONT SUBST) Cyanocobalamin (Vitamin B12 -) 1,000 mcg PO DAILY [facility] Enoxaparin Sodium (Lovenox -) 40 mg SQ DAILY [facility] Last Admin: 03/30/18 10:47 Dose: 40 mg Folic Acid (Folic Acid -) 1 mg PO DAILY [facility] Last Admin: 03/30/18 10:46 Dose: 1 mg Insulin Aspart (Novolog Vial Sliding Scale -) 1 vial SQ ACHS [facility]; Protocol Last Admin: 03/30/18 09:40 Dose: Not Given Thiamine HCl (Vitamin B1 -) 100 mg PO DAILY [facility] Last Admin: 03/30/18 10:47 Dose: 100 mg IMAGING: * CXR: No acute disease * Head CT: No acute pathology * Echo: LV systolic fxn normal. EF = 50-55%. Mild concentric LVH. Trace to mild MR. Mild TR. ASSESSMENT/PLAN: 52 y/o M with PMHx of Polysubstance abuse (EtOH, Cannabis, Cocaine), DM, Depression, Asthma, GERD, HLD, HTN, Chronic Lower extremity edema presents with Chest pain. #Atypical Chest Pain; EKG: Bifasicular block, VR 91, QTc 563, No RAFAELA/STD, Initial Troponin neg x2 -Reproducible, worse with movement, likely MSK however patient with multiple risk factors and must r/o ACS -CXR and echo noted above. -TSH 1.28, TG 326, Chol 169, LDL 92, HDL 37 -Aspirin 81 mg PO QD -Tele Monitoring #Elevated BNP; 2+ pitting edema -Lisinopril 10 QD, Coreg 6.25 BID, Nifedipine 60 QD, Spironolactone 25 BID -Given pt's home meds per pharmacy, he may have h/o CHF; will obtain records from [facility] from most recent hospitalization -Daily weights, Strict I&Os, Monitor renal function #Alcohol Withdrawal -Librium protocol -Drug cessation counseling -UTox, Ammonia level pending -Thiamine 100mg, Folic acid 1mg daily, VB12 1000 mcg QD -Would benefit from Detox consult, [facility] admission evaluation #HTN, Uncontrolled; 159/72 -Per pharmacy, has not picked up meds since September 2017. Will cont meds prescribed and add Lisinopril for renal protection since pt is diabetic. -Cont home med(s): Coreg 6.25 mg PO BID, Lisinopril 10 mg PO QD, #Elevated MCV; likely 2/2 alcohol abuse -Vitamin B12 213, Folate 21 -Cont home meds: B12 1000 mcg QD, Folate 1 mg QD #Morbid Obesity; BMI 41.2 -Diet counseling #Hx of DM; per pharmacy, was prescribed Levemir 12 U HS -A1c 6.9 -ISS BGMs ACHS #Hx of HLD -TG >300, LDL 92; will need statin; give Atorvastatin 10 mg PO HS #Hx of Asthma -Stable, Currently not experiencing signs/sx's of exacerbation -Would benefit from Outpatient Pulm follow up and PFTs #Hx of GERD -Cont home med: Ranitidine 150 mg PO BID #FEN -PO fluids -Lytes WNL -Diabetic/sodium controlled diet #PPx -DVT: Lovenox Dispo -monitor on tele Visit type - Emergency Visit Emergency Visit: Yes ED Registration Date: 03/29/18 Care time: The patient presented to the Emergency Department on the above date and was hospitalized for further evaluation of their emergent condition. - New Patient This patient is new to me today: Yes Date on this admission: 03/30/18 - Critical Care Critical Care patient: No
[2018-03-30] MEDS ORDERED: amLODIPine BESYLATE 10 MG TABLET (FP) PO SCH (10:00)
--- NOTE | 2018-03-30 10:34 | ECHO ---
Name: MYNOR PARKER Exam:Adult Echocardiogram Study Date: 03/30/2018 09:48 AM Age: 52 yrs Reason For Study: LV Function Height: 64 in Weight: 240 lb BSA: 2.1 m2 MMode/2D Measurements & Calculations IVSd: 1.3 cm Ao root diam: 3.1 cm LVIDd: 5.4 cm LA dimension: 3.7 cm LVIDs: 3.6 cm LVPWd: 1.6 cm EDV(Teich): 142.7 ml ESV(Teich): 55.9 ml Doppler Measurements & Calculations MV E max gustavo: 92.6 cm/sec MV A max gustavo: 70.8 cm/sec MV E/A: 1.3 MV dec time: 0.18 sec Left Ventricle There is mild concentric left ventricular hypertrophy. Left ventricular systolic function is grossly normal. Ejection Fraction = 50-55%. Right Ventricle The right ventricle is grossly normal size. The right ventricular systolic function is grossly normal . Atria The left atrium is borderline dilated. Right atrial size is normal. Mitral Valve The mitral valve is normal in structure and function. There is no mitral valve stenosis. There is tra ce to mild mitral regurgitation. Tricuspid Valve The tricuspid valve is normal in structure and function. There is mild tricuspid regurgitation. Aortic Valve The aortic valve opens well. No hemodynamically significant valvular aortic stenosis. Pulmonic Valve The pulmonic valve is not well seen, but is grossly normal. There is no pulmonic valvular stenosis. T here is no pulmonic valvular regurgitation. Great Vessels The aortic root is normal size. Pericardium/Pleura There is no pericardial effusion. Interpretation Summary Left ventricular systolic function is grossly normal. Ejection Fraction = 50-55%. There is mild concentric left ventricular hypertrophy. There is trace to mild mitral regurgitation. There is mild tricuspid regurgitation. There is no pericardial effusion. MD Galarza *Vandana 03/30/2018 10:33 AM
[2018-03-30] MEDS: ASPIRIN 81 MG CHEWABLE TABLETS PO SCH (10:46)
[2018-03-30] MEDS: FOLIC ACID 1 MG TABLET (FP) PO SCH (10:46)
[2018-03-30] MEDS: ENOXAPARIN NA (PORCINE) 40 MG/0.4 ML DISP.SYRIN SQ SCH (10:47)
[2018-03-30] MEDS: THIAMINE HCL 100 MG TABLET (FP) PO SCH (10:47)
[2018-03-30] MEDS ORDERED: chlordiazePOXIDE HCL 25 MG CAPSULE ONE (10:51)
[2018-03-30] MEDS ORDERED: chlordiazePOXIDE HCL 25 MG CAPSULE PO SCH (11:00)
[2018-03-30] MEDS: chlordiazePOXIDE HCL 25 MG CAPSULE PO SCH ×3 (11:54→22:31)
--- NOTE | 2018-03-30 11:54 | EKG ---
Test Reason : Blood Pressure : / mmHG Vent. Rate : 085 BPM Atrial Rate : 085 BPM P-R Int : 182 ms QRS Dur : 152 ms QT Int : 468 ms P-R-T Axes : 035 -67 054 degrees QTc Int : 556 ms SINUS RHYTHM WITH PREMATURE ATRIAL COMPLEXES RIGHT BUNDLE BRANCH BLOCK LEFT ANTERIOR FASCICULAR BLOCK BIFASCICULAR BLOCK ABNORMAL ECG WHEN COMPARED WITH ECG OF 29-MAR-2018 20:16, NONSPECIFIC T WAVE ABNORMALITY, IMPROVED IN LATERAL LEADS Confirmed by SIMA MCKEON, INOCENCIA ([id number]) on 03/30/2018 11:54:17 AM Referred By: Confirmed By:INOCENCIA GAO MD
--- NOTE | 2018-03-30 11:55 | EKG ---
Test Reason : Blood Pressure : / mmHG Vent. Rate : 091 BPM Atrial Rate : 091 BPM P-R Int : 170 ms QRS Dur : 154 ms QT Int : 458 ms P-R-T Axes : 045 -70 -26 degrees QTc Int : 563 ms SINUS RHYTHM WITH PREMATURE ATRIAL COMPLEXES RIGHT BUNDLE BRANCH BLOCK LEFT ANTERIOR FASCICULAR BLOCK BIFASCICULAR BLOCK ABNORMAL ECG WHEN COMPARED WITH ECG OF 30-JAN-2018 13:18, NONSPECIFIC T WAVE ABNORMALITY HAS REPLACED INVERTED T WAVES IN INFERIOR LEADS T WAVE INVERSION NOW EVIDENT IN ANTERIOR LEADS Confirmed by SIMA MCKEON, INOCENCIA ([id number]) on 03/30/2018 11:55:23 AM Referred By: Confirmed By:INOCENCIA GAO MD
[2018-03-30] MEDS: CYANOCOBALAMIN 1,000 MCG TABLET (FP) PO SCH (12:41)
[2018-03-30 13:12] LABS: COCAINE, UR NEGATIVE ng/ml (CUTOFF=300); METHADONE, UR NEGATIVE ng/ml (CUTOFF=300); OPIATES, URI NEGATIVE ng/ml (CUTOFF=300); PHENCYCLIDINE,URINE NEGATIVE ng/ml (CUTOFF=25); URINE AMPHETAMINES NEGATIVE ng/ml (CUTOFF=500); URINE BARBITURATES NEGATIVE ng/ml (CUTOFF=200)
[2018-03-30 13:14] LABS: URINE BENZODIAZEPINES POSITIVE ng/ml (CUTOFF=200)
--- NOTE | 2018-03-30 17:23 | PN ---
Teaching Attending Note Name of Resident: Arleen Mccrary ATTENDING PHYSICIAN STATEMENT I saw and evaluated the patient. I reviewed the resident's note and discussed the case with the resident. I agree with the resident's findings and plan as documented. SUBJECTIVE: no fever or chills . No abd pain. reports SOB and LE edema . last drink 2 days ago. reprots being in [facility] over night with no echo or stress test . reports CP x 3 days , continuous ,and getting better OBJECTIVE: NAD, awake, alert, cooperative, no nystagmus, no facial droop. MMM Cv : RRR, no mRG, No JVD Lungs: CATB Abd: obese, soft, NT, ND < No shifting dullness. liver is percussed but not palpated Ext : 1+ pitting edema on LE TTP over K and right sided chest ASSESSMENT AND PLAN: 52 y/o man with h/o ETOH abuse, HTN, DM, HL, treated HCV, Asthma, pancreatitis, GERD, cocaine and Marijuana use, and non compliance who was sent from [facility] with CP 1- CP: atypical in nature and reproducible. EKG with bifascicular block. non specific EKG changes trop nl x 3. no further w/u as in patient echo reviewed. NL EF , LVH 2- ETOH withdrawal. no signs of Wernicke's - thiamine, folate - start librium protocol - unfortunately, per my chart review, pt did not get IV thiamine at presentation . will order 3- Macrocytosis : low nL B12. we can't check MMA here. will start B12 supplementation 4- HTN urgency: per d/w pharmacy , he had not picked up his meds in a long while. was supposed to be on nifedipine, and coreg. and spironolactone will start above. will add lisinopril as diabetic 5- DM : was once prescribed levemir 12 units. will do SSI and check A1c 6- hyperlipidemia : TG > 300 and LDL 95. 10 year risk for heart attack per [place] risk score is 21%. need Statin. this will help both LDL and TG dispo: HLOC . might transfer to [facility] to continue detox if stable BP and vitals
[2018-03-30] MEDS ORDERED: THIAMINE HCL 200 MG/2 ML VIAL IVPB ONE (17:48)
[2018-03-30] MEDS ORDERED: PT OWN MED DRAWER 7, Y5N ONE ×2 (18:06→19:07)
[2018-03-30] MEDS ORDERED: ACETAMINOPHEN 325 MG TABLET (FP) PO ONE (19:04)
[2018-03-30] MEDS ORDERED: ATORVASTATIN CA 10 MG TABLET (FP) PO SCH (22:00)
[2018-03-30] MEDS: SPIRONOLACTONE 25 MG TABLET (FP) PO SCH (22:30)
[2018-03-30] MEDS: CARVEDILOL 6.25 MG TABLET (FP) PO SCH (22:31)
[2018-03-30] MEDS: RANITIDINE HCL 150 MG TABLET (FP) PO SCH (22:31)
[2018-03-31] MEDS: chlordiazePOXIDE HCL 25 MG CAPSULE PO SCH (05:30)
[2018-03-31] MEDS: INSULIN SLIDING SCALE (NOVOLOG) 1 VIAL SQ SCH ×2 (07:53→11:18)
[2018-03-31 07:59] LABS: HEMATOCRIT 42.3 % (35.4-49); HEMOGLOBIN 13.7 GM/dL (11.7-16.9); MCHC 32.5 g/dl (32.0-35.9); MEAN CELL VOLUME 101.6 fl (80-96); MEAN PLT VOLUME 6.8 fl (7.5-11.1); PLATELET COUNT 233 K/MM3 (134-434); RBC 4.16 M/mm3 (4.00-5.60); RDW 13.3 % (11.9-15.9); WHITE BLOOD COUNT 6.7 K/mm3 (4.0-10.0)
[2018-03-31 09:02] LABS: ANION GAP 7 MMOL/L (8-16); BLOOD UREA NITROGEN 17 mg/dL (7-18); CALCIUM 9.3 mg/dL (8.5-10.1); CHLORIDE 102 mmol/L (98-107); CO2 29 mmol/L (21-32); CREATININE 1.1 mg/dL (0.55-1.3); GLUCOSE,RANDOM 137 mg/dL (74-106); POTASSIUM 3.9 mmol/L (3.5-5.1); SODIUM 138 mmol/L (136-145)
[2018-03-31] MEDS ORDERED: ALBUTEROL SO4 0.083% IH SOL 2.5 MG/3 ML VIAL.NEB. NEB PRN (09:18)
--- NOTE | 2018-03-31 09:45 | PN ---
Physical Exam: SUBJECTIVE: Patient seen and examined at bedside. PVC's noted on tele. C/o SOB, tremors and vague pain in LLE. Unable to describe further. However mentions that he has been feeling better. Without further complaint. OBJECTIVE: Vital Signs Period Temp Pulse Resp BP Sys/Stone Pulse Ox Last 24 Hr 97.5 F-98.3 F 66-97 18-20 146-168/72-101 93-99 GENERAL: The patient is unkempt. AAOx3 however with delays HEAD: Normal with no signs of trauma. EYES: PERRL, extraocular movements intact, sclera anicteric, conjunctiva clear. ENT: Ears normal, nares patent, oropharynx clear without exudates, moist mucous membranes. NECK: Trachea midline, supple. LUNGS: +coarse breath sounds HEART: Regular rate and rhythm, S1, S2 without murmur, rub or gallop. ABDOMEN: Soft, obese, nontender, no guarding EXTREMITIES: 2+ pt pulses, warm, well-perfused. NEUROLOGICAL: Cranial nerves II through XII grossly intact. Able to move upper and lower extremities. +LLE diffusely TTP PSYCH: Normal mood, normal affect. SKIN: Warm, dry, normal turgor Laboratory Results 03/30/18 03/31/18 03/31/18 09:43 06:30 06:30 WBC 6.7 Hgb 13.7 Hct 42.3 Plt Count 233 Sodium 138 Potassium 3.9 Chloride 102 Carbon Dioxide 29 BUN 17 Creatinine 1.1 Ammonia 32.35 H ASSESSMENT/PLAN: 52 y/o M with PMHx of Polysubstance abuse (EtOH, Cannabis, Cocaine), DM, Depression, Asthma, GERD, HLD, HTN, Chronic Lower extremity edema who was sent from [facility] for eval of chest pain. #Atypical Chest Pain; EKG: Bifasicular block -c/w baby asa, tele monitoring. trops (-) x 3 #Alcohol Withdrawal- improving -CIWA 15, continue to monitor -less likely w/ encephalopathy as mental status improving -c/w thiamine, folic, vit B12 -interested in returning to after #LE pain -f/u duplex LE #HTN-uncontrolled likely 2/2 noncompliance -c/w nifedipine, coreg, aldactone, lisinopril added d/t DM -obtain records from [facility] from most recent hospitalization. was sent from [facility] #macrocytic anemia likely 2/2 alc abuse -c/w vit b12 supplementation #DM; per pharmacy, was prescribed Levemir 12 U HS -A1c 6.9. -ISS BGMs ACHS #HLD -c/w lipitor #Asthma -will start on nebs as pt endorsing SOB #GERD -c/w ranitidine #FEN -PO fluids -Lytes WNL -Diabetic/sodium controlled diet #PPx -DVT: Lovenox Dispo monitor on tele for exacerbation of withdrawal sx. however currently improving on librium protocol.will duplex LE if (-) can continue detox at if accepted Visit type - Emergency Visit Emergency Visit: No - New Patient This patient is new to me today: No - Critical Care Critical Care patient: No
[2018-03-31] MEDS: ENOXAPARIN NA (PORCINE) 40 MG/0.4 ML DISP.SYRIN SQ SCH (09:57)
[2018-03-31] MEDS: CARVEDILOL 6.25 MG TABLET (FP) PO SCH (09:57)
[2018-03-31] MEDS: ASPIRIN 81 MG CHEWABLE TABLETS PO SCH (09:57)
[2018-03-31] MEDS: THIAMINE HCL 100 MG TABLET (FP) PO SCH (09:57)
[2018-03-31] MEDS: SPIRONOLACTONE 25 MG TABLET (FP) PO SCH (09:57)
[2018-03-31] MEDS: CYANOCOBALAMIN 1,000 MCG TABLET (FP) PO SCH (09:57)
[2018-03-31] MEDS: FOLIC ACID 1 MG TABLET (FP) PO SCH (09:57)
[2018-03-31] MEDS: RANITIDINE HCL 150 MG TABLET (FP) PO SCH (09:58)
[2018-03-31] MEDS ORDERED: NIFEdipine E.R 60 MG TABLET (UD) PO SCH (10:00)
[2018-03-31] MEDS ORDERED: LISINOPRIL 10 MG TABLET (FP) PO SCH (10:00)
[2018-03-31] MEDS ORDERED: chlordiazePOXIDE HCL 25 MG CAPSULE PO SCH ×2 (11:00)
[2018-03-31 14:42] VITALS: PULSE 90; TEMP 98.3
[2018-03-31 14:49] VITALS: BP 128/89
--- NOTE | 2018-03-31 15:21 | PN ---
Teaching Attending Note Name of Resident: Dee Dee Sanchez ATTENDING PHYSICIAN STATEMENT I saw and evaluated the patient. I reviewed the resident's note and discussed the case with the resident. I agree with the resident's findings and plan as documented. SUBJECTIVE: No fever or chills. No abd pain. no STOVER , feels better than before . No cp . OBJECTIVE: NAD, awake, alert, cooperative, MMM Cv: RRR, no MRG, No JVD Lungs: CATB Abd: obese, soft, NT, ND . Ext: 1+ pitting edema on LE ASSESSMENT AND PLAN: 52 y/o man with h/o ETOH abuse, HTN, DM, HL, treated HCV, Asthma, pancreatitis, GERD, cocaine and Marijuana use, and non compliance who was sent from [facility] with CP 1- atypical CP . no further w/u 2- ETOH withdrawal. - thiamine, folate - cont librium taper at [facility] 3- Macrocytosis : low nL B12. cont B12 supplementation 4- HTN urgency: BP improved - contnifedipine, and coreg. and spironolactone . and lisinopril cont home imdur BMP in 3 days for K 5- DM : A1c 6.9. at some point was supposed to be on insulin. now he does not need it and his compliant is questionable . will send on metformin 6- Hyperlipidemia : cont statin dispo: transfer to [facility] to finish his detox
--- NOTE | 2018-03-31 18:11 | DS ---
Physical Exam: SUBJECTIVE: Patient seen and examined at bedside. This AM stated that he felt tremulous, however improved by afternoon. Feeling well and sitting on edge of bed. OBJECTIVE: Vital Signs Period Temp Pulse Resp BP Sys/Stone Pulse Ox Last 24 Hr 97.5 F-98.3 F 66-90 16-20 128-168/88-99 93-95 PHYSICAL EXAM GENERAL: unkempt. The patient is sitting up comfortably. awake, alert, and fully oriented, in no acute distress. HEAD: Normal with no signs of trauma. EYES: PERRL, extraocular movements intact, sclera anicteric, conjunctiva clear. ENT: Ears normal, nares patent, oropharynx clear without exudates, moist mucous membranes. NECK: Trachea midline, full range of motion, supple. LUNGS: +b/l wheezes HEART: Regular rate and rhythm, S1, S2 without murmur, rub or gallop. ABDOMEN: Soft, obese, nontender, nondistended, normoactive bowel sounds, no guarding, no rebound EXTREMITIES: 2+ pt pulses, warm, well-perfused, chronic changes. 1+ pitting edema b/l NEUROLOGICAL: Cranial nerves II through XII grossly intact. PSYCH: Normal mood, normal affect. SKIN: Warm, dry, normal turgor LABS Laboratory Results - last 24 hr 03/30/18 03/31/18 03/31/18 22:29 05:27 06:30 WBC 6.7 RBC 4.16 Hgb 13.7 Hct 42.3 MCV 101.6 H MCH 33.0 MCHC 32.5 RDW 13.3 Plt Count 233 MPV 6.8 L Sodium POC Glucometer 161 128 Random Glucose 03/31/18 03/31/18 06:30 11:11 MPV Sodium 138 Potassium 3.9 Chloride 102 Carbon Dioxide 29 Anion Gap 7 L BUN 17 Creatinine 1.1 Creat Clearance w eGFR > 60 POC Glucometer 137 Random Glucose 137 H Calcium 9.3 03/29/18 03/30/18 03/30/18 15:52 09:43 12:46 Ammonia 32.35 H Benzodiazepines Screen Positive A* Influenza A (Rapid) Negative Influenza B (Rapid) Negative IMAGING CXR: cardiomegaly, no acute dz. no infiltrates or pleural effusions. tortuosity of the thoracic aorta and degenerative arthritis of the thoracic spine Head CT: no acute pathology. no masses, no extra-axial fluid, no intracranial hemorrhage, partly empty sella turcica which is usually of no clinical significance, mild nonspecific b/l periventricular white matter low attenuation noted ECHO: LV systolic fnc is grossly normal. EF 50-55%. mild concentric LVH. trace to mild MR, TR, no pericardial effusion. HOSPITAL COURSE: Date of Admission:03/29/18 Date of Discharge: 03/31/18 admit diagnosis: chest pain, r/o ACS 52 y/o M with PMH of Polysubstance abuse (EtOH, Cannabis, Cocaine), DM, Depression, Asthma, GERD, HLD, HTN, Chronic Lower extremity edema who presented to the ED with chest pain from [facility]. On admission, patient was increasingly lethargic. While at Detox, pt developed sudden, 7/10 midsternal chest pain while seated. Was described as a constant ache without radiation, worsened with deep breathing and shoulder movement. Day prior, pt endorsed same sx however was not as severe. During this time, pt has also been unable to ambulate up stairs d/t REECE and angina. Noncompliant and has not been seen by a ticket maker . At this time, pt also endorsed chills, two episodes of NBNB emesis, soft BM's and a STOVER. After pt was admitted to the hospital, the following workup occurred: chest pain this was found to be atypical as it was reproducible. ekg done showed bifascicular block with nonspecifc EKG changes. trops were negative x 3. pt also underwent an ECHO that showed LV systolic fnc which was grossly normal. EF 50-55%. no further w/u was needed during his stay as his sx resolved quickly. alcohol withdrawal pt was started on thiamine 100mg qd , folic acid 1mg qd and began his librium protocol. this improved his status and he became medically cleared to continue the rest of the protocol while at [facility] . d/w [facility] doc. during this time, he was also supplemented with vit b12 1000 mcg qd as he had macrocytic anemia which was likely 2/2 his alcohol abuse. htn urgency when pt was admitted, his BP was 173/96. he was cont'd on his home meds of nifedipine 60mg qd, coreg 6.25 BID, aldactone 25mg qd. however, he was not compliant. during his stay, his BP improved to ~140/90 with this tx. he is recommended BMP in 3 days to check his electrolytes as he is on aldactone. it is possible that his HTN was exacerbated 2/2 to his withdrawal. dm pt was started on metformin on d/c. his levemir 12u was d/c as his compliance is questionable. a1c during admission was 6.9. will need yearly eye exams, frequent foot exams to check for neuropathy. r/o DVT during hospital stay, pt c/o lower extremity pain. duplex was done and r/o DVT. no clot seen HLD pt continued on statin. lipitor 10mg HS Minutes to complete discharge: 44 Discharge Summary Reason For Visit: CHEST PAIN Current Active Problems Alcohol dependence with uncomplicated withdrawal (Acute) Condition: Stable - Instructions Diet, Activity, Other Instructions: Your visit You were in the hospital because you had chest pain and were withdrawing from alcohol use. While you were here, your cardiac enzymes were trended. They were normal. No acute intervention was needed. While here, you also withdrew from alcohol so you were started on the Librium protocol for detox. You will continue this at [facility]. Medications Please continue the following medications -Coreg 6.5mg twice a day -baby aspirin 81mg daily -lipitor 10 mg daily -nifedipine 60mg daily -zantac 150mg twice a day -isosorbide mononitrate 20mg daily -dulera inhaler - 2 puffs daily We have also added the following to your regimen. Please continue: Folic acid 1 mg daily Thiamine 100mg daily Vitamin B12 1000 mcg daily Lisinopril 10mg daily Aldactone 25mg once a day metformin 500mg once a day Changes Do NOT take insulin levemir. We are sending you with metformin instead as above . You will also continue the Librium protocol. You are due for your 2nd dose of 25mg at 5pm. You may continue the rest of the protocol. Care Please stop drinking alcohol. It can lead to issues with your liver and can even cause . [facility] will have resources that you can use. It is also important that you eat healthy in order to avoid nutritional deficiencies. Labs You need a BMP in 3 days to check your electrolytes. We will give you a prescription for this. Follow up Please follow up with your doctor at [facility] this week. We will also refer you to Dr. Jhony Murphy for an appointment in 1 week. Additional if you develop shortness of breath, chest pain, pressure, or feel dizzy please go to the hospital. Referrals: Lacey Amaro DO [Staff Physician] - 1 Week Disposition: TRANSFER ACUTE CARE/OTHER HOSP - Home Medications Comprehensive Discharge Medication List: Ambulatory Orders Isosorbide Mononitrate 20 mg PO DAILY 03/30/18 Mometasone/Formoterol [Dulera 200 Mcg/5 Mcg Inhaler] 2 inh IH BID 03/30/18 Ranitidine [Zantac -] 150 mg PO BID 03/30/18 Aspirin [ASA -] 81 mg PO DAILY tab.chew 03/31/18 Atorvastatin Ca [Lipitor] 10 mg PO HS tablet 03/31/18 Carvedilol [Coreg -] 6.25 mg PO BID tablet 03/31/18 Chlordiazepoxide [Librium -] 10 mg PO [id number] #4 capsule MDD 40mg 03/31/18 Chlordiazepoxide [Librium -] 15 mg PO [id number] #4 capsule MDD 60mg 03/31/18 Chlordiazepoxide [Librium -] 25 mg PO [id number] #3 capsule MDD 75mg 03/31/18 Cyanocobalamin [Vitamin B12 -] 1,000 mcg PO DAILY tablet 03/31/18 Folic Acid - 1 mg PO DAILY tablet 03/31/18 Lisinopril [Prinivil] 10 mg PO DAILY tablet 03/31/18 Miscellaneous Drug Not In Syst [Outpatient Lab Test] 1 each ASDIR #1 misc 03/07 Nifedipine ER [Procardia XL -] 60 mg PO DAILY tab.er.24 03/31/18 Spironolactone [Aldactone] 25 mg PO DAILY #30 tablet 03/31/18 Thiamine HCl [Vitamin B1 -] 100 mg PO DAILY tablet 03/31/18 metFORMIN HCL [Metformin HCl] 500 mg PO DAILY #30 tablet 03/31/18 This patient is new to me today: No Emergency Visit: No Critical Care patient: No - Discharge Referral Referred to [facility] No
[2018-04-01] MEDS ORDERED: chlordiazePOXIDE 5 MG CAPSULE PO SCH ×2 (11:00)
[2018-04-02] MEDS ORDERED: chlordiazePOXIDE HCL 10 MG CAPSULE PO SCH ×2 (11:00)
== END 2018-03-31 16:15 | disposition other institution (70) ==
LOC: JER 13:35 → JERBED 21:00 → J4S 03-30 13:31
PROVIDERS: ADMIT Internal Medicine; ATTEND Internal Medicine
PROC: 3E0337Z Introduction of Electrolytic and Water Balance Substance into Peripheral Vein, Percutaneous Approach (ICD-10-PCS; principal; 2018-03-29)
PROC: 3E033GC Introduction of Other Therapeutic Substance into Peripheral Vein, Percutaneous Approach (ICD-10-PCS; 2018-03-29)
PROC: 3E013GC Introduction of Other Therapeutic Substance into Subcutaneous Tissue, Percutaneous Approach (ICD-10-PCS; 2018-03-29)
DX: R07.89 Other chest pain (principal); R41.82 Altered mental status, unspecified; D75.89 Other specified diseases of blood and blood-forming organs; E78.5 Hyperlipidemia, unspecified; I10 Essential (primary) hypertension; K21.9 Gastro-esophageal reflux disease without esophagitis; F32.9 Major depressive disorder, single episode, unspecified; J45.909 Unspecified asthma, uncomplicated; E11.9 Type 2 diabetes mellitus without complications; F10.230 Alcohol dependence with withdrawal, uncomplicated; F14.20 Cocaine dependence, uncomplicated; F12.10 Cannabis abuse, uncomplicated; F17.210 Nicotine dependence, cigarettes, uncomplicated; I45.10 Unspecified right bundle-branch block; R79.89 Other specified abnormal findings of blood chemistry; E66.9 Obesity, unspecified; Z68.39 Body mass index [BMI] 39.0-39.9, adult; R71.8 Other abnormality of red blood cells; Z91.19 Patient's noncompliance with other medical treatment and regimen; D50.9 Iron deficiency anemia, unspecified; I51.7 Cardiomegaly; I16.0 Hypertensive urgency
CPT/HCPCS: 36415; 70450-TC; 71045-TC-FY; 80048; 80053; 80061; 80307; 81003; 82140; 82550; 82607; 82746; 82962; 83036; 83690; 83721; 83735; 83880; 84100; 84443; 84484; 85025; 85027; 87086; 87804; 93005; 93010; 93306-TC; 93970-TC; 96361; 96372; 96374; 96375; 99285-25; G0378; J7030

== ENCOUNTER 2018-03-31 17:05 | Inpatient (IN) | payer OTHER ==
[2018-03-31 18:49] VITALS: BMI 40.1
--- NOTE | 2018-03-31 20:00 | HP ---
CIWA Score - Admission Criteria [facility] Guidelines: Admission for Medically Managed Detox: Requires at least one of the followin. CIWA greater than 12 2. Seizures within the past 24 hours 3. Delirium tremens within the past 24 hours 4. Hallucinations within the past 24 hours 5. Acute intervention needed for co occurring medical disorder 6. Acute intervention needed for co occurring psychiatric disorder 7. Severe withdrawal that cannot be handled at a lower level of care (continued vomiting, continued diarrhea, abnormal vital signs) requiring intravenous medication and/or fluids 8. Admission ROS S - HPI Allergies/Adverse Reactions: Allergies Allergy/AdvReac Type Severity Reaction Status Date / Time No Known Allergies Allergy Verified 03/29/18 11:43 History of Present Illness: patient here requesting detox from etoh use , s/p hospitalization -03/31 @ [facility] for chest pain , meds adjusted , patient here reports he is feeling much better, Librium detox started at hospital latest dose given this morning 25 mg . d/c paperwork reviewed . PMHX : asthma , DM on insulin " I don't remember "( when diagnosed with DM , when taken meds ) , HTN Exam Limitations: No Limitations - Ebola screening Have you been sick,other than usual withdrawal symptoms: No - Review of Systems Constitutional: See HPI EENT: reports: Other (bifocals , denies dysphagia , lost dentures) Respiratory: reports: No Symptoms reported Cardiac: reports: No Symptoms Reported GI: reports: No Symptoms Reported : reports: No Symptoms Reported Musculoskeletal: reports: No Symptoms Reported Integumentary: reports: No Symptoms Reported Neuro: reports: No Symptoms reported Endocrine: reports: See HPI Psychiatric: reports: Orientated x3, Anxious Patient History - Patient Medical History Hx Anemia: No Hx Asthma: Yes Hx Chronic Obstructive Pulmonary Disease (COPD): No Hx Cancer: No Hx Cardiac Disorders: No Hx Congestive Heart Failure: No Hx Hypertension: Yes Hx Hypercholesterolemia: Yes (FENOFIBRATE 145 MG DAILY) Hx Pacemaker: No HX Cerebrovascular Accident: No Hx Seizures: No Hx Dementia: No Hx Diabetes: Yes Hx Gastrointestinal Disorders: Yes (panceatitis) Hx Liver Disease: Yes (ALCOHOL HEPATITIS WITHOUT ASCITES ) Hx Genitourinary Disorders: No Hx Sexually Transmitted Disorders: No Hx Renal Disease (ESRD): No Hx Thyroid Disease: No Hx Human Immunodeficiency Virus (HIV): No Hx Hepatitis C: Yes (treated) Hx Depression: Yes Hx Suicide Attempt: No Hx Bipolar Disorder: Yes (no med) Hx Schizophrenia: No - Patient Surgical History Past Surgical History: No Hx Neurologic Surgery: No Hx Cataract Extraction: No Hx Cardiac Surgery: No Hx Lung Surgery: No Hx Breast Surgery: No Hx Breast Biopsy: No Hx Abdominal Surgery: No Hx Appendectomy: No Hx Cholecystectomy: No Hx Genitourinary Surgery: No Hx Section: No Hx Orthopedic Surgery: No Anesthesia Reaction: No - PPD History Date: 02/01/18 Results: 0 mm - Smoking Cessation Smoking history: Current some day smoker Have you smoked in the past 12 months: Yes Aproximately how many cigarettes per day: 1 Cigars Per Day: 0 Hx Chewing Tobacco Use: No Initiated information on smoking cessation: No Family Disease History - Family Disease History Family Disease History: Heart Disease: Mother (HTN- ), Other: Father ( ALCOHOLISM), Mother Admission Physical Exam BHS - Vital Signs Vital Signs: Vital Signs - 24 hr 03/31/18 18:47 Temperature 97.0 F L Pulse Rate 78 Respiratory 18 Rate Blood Pressure 153/90 - Physical General Appearance: Yes: Disheveled, Mild Distress HEENTM: Yes: EOMI, Hearing grossly Normal, Normocephalic, Normal Voice, Other ( edentulous) Respiratory: Yes: Chest Non-Tender, Lungs Clear, Normal Breath Sounds Neck: Yes: No masses,lesions,Nodules, Trachea in good position Breast: Yes: Breast Exam Deferred Cardiology: Yes: Regular Rhythm, Regular Rate, S1, S2 Abdominal: Yes: Normal Bowel Sounds, Protuberent Genitourinary: Yes: Within Normal Limits Back: Yes: Normal Inspection Musculoskeletal: Yes: Gait Steady Extremities: Yes: Normal Capillary Refill, Tremors Neurological: Yes: Fully Oriented, Alert, Motor Strength 5/5 Integumentary: Yes: Normal Color, Dry, Erythema (aniket LE), Pitting Edema - Diagnostic (1) Alcohol dependence with uncomplicated withdrawal Current Visit: No Status: Acute (2) Asthma Current Visit: No Status: Chronic Qualifiers: Asthma severity: mild Asthma complication type: uncomplicated (3) DM2 (diabetes mellitus, type 2) Current Visit: No Status: Chronic Qualifiers: Diabetes mellitus longterm insulin use: unspecified 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
[2018-03-31] MEDS ORDERED: MAGNESIUM HYDROX 2400MG/30ML ORAL SUSPENSION 30 ML CUP PO PRN (20:01)
[2018-03-31] MEDS ORDERED: P-EPHED 60MG/TRIPROLIDI 2.5MG TABLET PO PRN (20:01)
[2018-03-31] MEDS ORDERED: IBUPROFEN 400 MG TABLET (FP) PO PRN (20:01)
[2018-03-31] MEDS ORDERED: ACETAMINOPHEN 325 MG TABLET (FP) PO PRN (20:01)
[2018-03-31] MEDS ORDERED: MENTHOL/PHENOL 1 EACH UD MM PRN (20:01)
[2018-03-31] MEDS ORDERED: chlordiazePOXIDE HCL 25 MG CAPSULE PO PRN (20:01)
[2018-03-31] MEDS ORDERED: MAGNESIUM CITRATE 300 ML BOTTLE PO PRN (20:01)
[2018-03-31] MEDS ORDERED: guaiFENesin/D-METHORPHAN HB 10 ML UNIT-DOSE CUPS PO PRN (20:01)
[2018-03-31] MEDS ORDERED: MAG HYDROX/AL HYDROX/SIMETH 30 ML UNIT-DOSE CUP PO PRN (20:01)
[2018-03-31] MEDS ORDERED: ALBUTEROL SO4 0.083% IH SOL 2.5 MG/3 ML VIAL.NEB. NEB PRN (20:06)
[2018-04-01] MEDS: RANITIDINE HCL 150 MG TABLET (FP) PO SCH ×3 (00:44→23:51)
[2018-04-01] MEDS: MELATONIN 5 MG TABLETS PO PRN (00:44)
[2018-04-01] MEDS: ATORVASTATIN CA 10 MG TABLET (FP) PO SCH ×2 (00:44→23:32)
[2018-04-01] MEDS: chlordiazePOXIDE HCL 25 MG CAPSULE PO SCH ×5 (00:44→23:32)
[2018-04-01] MEDS: INSULIN (LEVEMIR) 100 UNITS/ML UNITS SQ SCH ×2 (00:46→23:31)
[2018-04-01] MEDS: THIAMINE HCL 100 MG TABLET (FP) PO SCH ×2 (01:06→23:50)
[2018-04-01] MEDS: INSULIN SLIDING SCALE (NOVOLOG) 1 VIAL SQ SCH ×5 (01:06→23:33)
[2018-04-01] MEDS: CARVEDILOL 6.25 MG TABLET (FP) PO SCH ×3 (01:06→23:31)
[2018-04-01] MEDS ORDERED: metFORMIN HCL 500 MG TABLET (FP) PO ONE (09:07)
[2018-04-01] MEDS: ALBUTEROL SO4 8 GM HFA INHALER IH PRN ×2 (09:10→18:57)
--- NOTE | 2018-04-01 09:10 | PN ---
S CIWA - CIWA Score Nausea/Vomitin-Mild Nausea/No Vomiting Muscle Tremors: 4-Moderate,w/Arms Extend Anxiety: 4-Mod. Anxious/Guarded Agitation: 4-Moderately Restless Paroxysmal Sweats: 1-Minimal Palms Moist Orientation: 1-Uncertain about Date Tacttile Disturbances: 0-None Auditory Disturbances: 0-None Visual Disturbances: 0-None Headache: 1-Very Mild CIWA-Ar Total Score: 16 BHS Progress Note (SOAP) Subjective: patient requests to take metformin 500 mg at 0700 am tremor indigestion anxiety restlessness Objective: 04/01/18 10:47 Vital Signs Temperature 97.7 F 04/01/18 06:00 Pulse Rate 75 04/01/18 07:25 Respiratory Rate 18 04/01/18 07:25 Blood Pressure 140/69 04/01/18 07:25 O2 Sat by Pulse Oximetry (%) Laboratory Last Values POC Glucometer 106 UNITS (80-120) 04/01/18 06:13 lb lab result see ER 03/29-03/07 Assessment: 04/01/18 10:52 alcohol withdrawal sx hypertension Plan: continue detox
[2018-04-01] MEDS ORDERED: metFORMIN HCL 500 MG TABLET (FP) PO SCH (10:00)
[2018-04-01] MEDS ORDERED: ISOSORBIDE MONONITRATE 20 MG TABLET PO SCH ×2 (10:00)
[2018-04-01] MEDS: SPIRONOLACTONE 25 MG TABLET (FP) PO SCH (10:34)
[2018-04-01] MEDS: ASPIRIN 81 MG CHEWABLE TABLETS PO SCH (10:34)
[2018-04-01] MEDS: PRENATAL VITAMINS W/ FOLIC ACID TABLET (FP) PO SCH (10:34)
[2018-04-01] MEDS: LISINOPRIL 10 MG TABLET (FP) PO SCH (10:34)
[2018-04-01] MEDS: NIFEdipine E.R. 30 MG TABLET (FP) PO SCH (10:34)
[2018-04-01] MEDS ORDERED: cloNIDine HCL 0.1 MG TABLET PO PRN (10:52)
[2018-04-02] MEDS ORDERED: chlordiazePOXIDE 5 MG CAPSULE PO SCH (06:00)
[2018-04-02] MEDS: metFORMIN HCL 500 MG TABLET (FP) PO SCH (06:03)
[2018-04-02] MEDS: chlordiazePOXIDE 5 MG CAPSULE PO SCH ×4 (06:17→22:06)
[2018-04-02] MEDS: INSULIN SLIDING SCALE (NOVOLOG) 1 VIAL SQ SCH ×4 (07:12→22:06)
[2018-04-02] MEDS: chlordiazePOXIDE HCL 25 MG CAPSULE PO SCH (07:14)
[2018-04-02] MEDS ORDERED: ISOSORBIDE MONONITRATE 20 MG TABLET PO SCH (08:00)
[2018-04-02] MEDS: SPIRONOLACTONE 25 MG TABLET (FP) PO SCH (10:10)
[2018-04-02] MEDS: ASPIRIN 81 MG CHEWABLE TABLETS PO SCH (10:10)
[2018-04-02] MEDS: RANITIDINE HCL 150 MG TABLET (FP) PO SCH ×2 (10:10→22:05)
[2018-04-02] MEDS: NIFEdipine E.R. 30 MG TABLET (FP) PO SCH (10:10)
[2018-04-02] MEDS: PRENATAL VITAMINS W/ FOLIC ACID TABLET (FP) PO SCH (10:10)
[2018-04-02] MEDS: LISINOPRIL 10 MG TABLET (FP) PO SCH (10:10)
[2018-04-02] MEDS: ALBUTEROL SO4 8 GM HFA INHALER IH PRN ×2 (10:14→17:37)
--- NOTE | 2018-04-02 10:37 | PN ---
S CIWA - CIWA Score Nausea/Vomitin-No Nausea/No Vomiting Muscle Tremors: 3 Anxiety: 3 Agitation: 3 Paroxysmal Sweats: 3 Orientation: 0-Oriented Tacttile Disturbances: 0-None Auditory Disturbances: 0-None Visual Disturbances: 0-None Headache: 0-None Present CIWA-Ar Total Score: 12 BHS Progress Note (SOAP) Subjective: agitation sweats interrupted sleep body aches low back pain Objective: 04/02/18 10:36 Vital Signs Temperature 97.5 F L 04/02/18 09:31 Pulse Rate 76 04/02/18 09:31 Respiratory Rate 18 04/02/18 09:31 Blood Pressure 159/93 04/02/18 09:31 O2 Sat by Pulse Oximetry (%) Laboratory Tests 04/01/18 04/01/18 04/01/18 00:36 06:13 11:58 POC Glucometer 142 106 113 04/02/18 05:59 POC Glucometer 147 rest of labs pending aaox3 ambulating no acute distress Assessment: 04/02/18 10:36 withdrawal sx Plan: continue detox increase fluids lidocaine patch motrin 800mg prn
[2018-04-02] MEDS: CARVEDILOL 6.25 MG TABLET (FP) PO SCH ×2 (11:12→22:05)
[2018-04-02] MEDS ORDERED: LIDOCAINE 5% TOPICAL PATCH TP ONE (12:20)
[2018-04-02] MEDS: ISOSORBIDE MONONITRATE 20 MG TABLET PO SCH ×2 (13:19→16:06)
[2018-04-02] MEDS: BUDESONIDE/FORMETEROL FUMARATE 160/4.5 mcg INHALER IH SCH ×5 (14:32→22:07)
[2018-04-02] MEDS ORDERED: LIDOCAINE PATCH REMOVAL MC SCH (22:00)
[2018-04-02] MEDS: IBUPROFEN 400 MG TABLET (FP) PO PRN (22:05)
[2018-04-02] MEDS: ATORVASTATIN CA 10 MG TABLET (FP) PO SCH (22:05)
[2018-04-02] MEDS: THIAMINE HCL 100 MG TABLET (FP) PO SCH (22:05)
[2018-04-02] MEDS: INSULIN (LEVEMIR) 100 UNITS/ML UNITS SQ SCH (22:06)
[2018-04-02] MEDS: MELATONIN 5 MG TABLETS PO PRN (22:11)
[2018-04-03] MEDS: IBUPROFEN 400 MG TABLET (FP) PO PRN (04:22)
[2018-04-03] MEDS: chlordiazePOXIDE 5 MG CAPSULE PO SCH (04:22)
[2018-04-03] MEDS: INSULIN SLIDING SCALE (NOVOLOG) 1 VIAL SQ SCH (07:30)
[2018-04-03] MEDS: metFORMIN HCL 500 MG TABLET (FP) PO SCH (07:33)
[2018-04-03] MEDS: ISOSORBIDE MONONITRATE 20 MG TABLET PO SCH (07:47)
[2018-04-03] MEDS: ALBUTEROL SO4 8 GM HFA INHALER IH PRN (07:48)
[2018-04-03 09:24] VITALS: BP 171/93; PULSE 66; TEMP 97.2
--- NOTE | 2018-04-03 09:38 | DS ---
[facility] Detox Discharge Summary Admission Date: 03/31/18 Discharge Date: 04/03/18 - History Present History: Alcohol Dependence, Cannabis Dependence, Cocaine Dependence - Physical Exam Results Vital Signs: Vital Signs Temperature 97.2 F L 04/03/18 09:24 Pulse Rate 66 04/03/18 09:24 Respiratory Rate 20 04/03/18 09:24 Blood Pressure 171/93 H 04/03/18 09:24 O2 Sat by Pulse Oximetry (%) - Treatment Hospital Course: Detox Protocol Followed, Detoxed Safely, Responded well, Discharged Condition Good, Rehab Referral Accepted - Medication Discharge Medications: Ambulatory Orders Isosorbide Mononitrate 20 mg PO DAILY 03/30/18 Mometasone/Formoterol [Dulera 200 Mcg/5 Mcg Inhaler] 2 inh IH BID 03/30/18 Ranitidine [Zantac -] 150 mg PO BID 03/30/18 Aspirin [ASA -] 81 mg PO DAILY tab.chew 03/31/18 Atorvastatin Ca [Lipitor] 10 mg PO HS tablet 03/31/18 Carvedilol [Coreg -] 6.25 mg PO BID tablet 03/31/18 Cyanocobalamin [Vitamin B12 -] 1,000 mcg PO DAILY tablet 03/31/18 Folic Acid - 1 mg PO DAILY tablet 03/31/18 Lisinopril [Prinivil] 10 mg PO DAILY tablet 03/31/18 Nifedipine ER [Procardia XL -] 60 mg PO DAILY tab.er.24 03/31/18 Spironolactone [Aldactone] 25 mg PO DAILY #30 tablet 03/31/18 metFORMIN HCL [Metformin HCl] 500 mg PO DAILY #30 tablet 03/31/18 - Diagnosis (1) Alcohol dependence with uncomplicated withdrawal Current Visit: Yes Status: Chronic (2) Asthma Current Visit: Yes Status: Chronic Qualifiers: Asthma severity: mild Asthma complication type: uncomplicated (3) Cannabis abuse Current Visit: Yes Status: Chronic (4) Cocaine dependence Current Visit: Yes Status: Chronic Qualifiers: Substance use status: uncomplicated Qualified Code(s): F14.20 - Cocaine dependence, uncomplicated (5) DM2 (diabetes mellitus, type 2) Current Visit: Yes Status: Chronic Qualifiers: Diabetes mellitus custodial insulin use: unspecified terminal manager insulin use status Diabetes mellitus complication status: without complication Qualified Code(s): E11.9 - Type 2 diabetes mellitus without complications (6) GERD (gastroesophageal reflux disease) Current Visit: Yes Status: Chronic Qualifiers: Esophagitis presence: without esophagitis Qualified Code(s): K21.9 - Gastro -esophageal reflux disease without esophagitis (7) Hyperlipidemia Current Visit: No Status: Chronic Qualifiers: Hyperlipidemia type: pure hypercholesterolemia Qualified Code(s): E78.00 - Pure hypercholesterolemia, unspecified; E78.0 - Pure hypercholesterolemia (8) Hypertension Current Visit: Yes Status: Chronic Qualifiers: Hypertension type: essential hypertension Qualified Code(s): I10 - Essential (primary) hypertension (9) Nicotine abuse Current Visit: Yes Status: Chronic (10) Chest pain Current Visit: No Status: Resolved Qualifiers: Chest pain type: unspecified Qualified Code(s): R07.9 - Chest pain, unspecified - AMA Did Patient Leave Against Medical Advice: No (pt declined and going home)
[2018-04-03] MEDS ORDERED: LIDOCAINE 5% TOPICAL PATCH TP SCH (10:00)
[2018-04-03 11:46] LABS: ALBUMIN 3.6 g/dl (3.4-5.0); ALK PHOS 142 U/L (45-117); ANION GAP 7 MMOL/L (8-16); BILIRUBIN,TOTAL 0.6 mg/dL (0.2-1); BLOOD UREA NITROGEN 21 mg/dL (7-18); CALCIUM 9.1 mg/dL (8.5-10.1); CHLORIDE 107 mmol/L (98-107); CO2 27 mmol/L (21-32); CREATININE 1.3 mg/dL (0.55-1.3); GLUCOSE,RANDOM 126 mg/dL (74-106); POTASSIUM 4.1 mmol/L (3.5-5.1); SGOT/AST 45 U/L (15-37); SGPT/ALT 44 U/L (13-61); SODIUM 141 mmol/L (136-145); TOT PROT 7.1 g/dl (6.4-8.2)
== END 2018-04-03 09:20 | disposition home or self-care (01) | DRG 774 ==
LOC: YASAS 17:05 → Y6N 20:24
PROC: HZ2ZZZZ Detoxification Services for Substance Abuse Treatment (ICD-10-PCS; principal; 2018-03-31)
DX: F10.230 Alcohol dependence with withdrawal, uncomplicated (principal); F14.20 Cocaine dependence, uncomplicated; F12.10 Cannabis abuse, uncomplicated; F17.210 Nicotine dependence, cigarettes, uncomplicated; E11.9 Type 2 diabetes mellitus without complications; J45.909 Unspecified asthma, uncomplicated; K21.9 Gastro-esophageal reflux disease without esophagitis; E78.5 Hyperlipidemia, unspecified; R07.9 Chest pain, unspecified
CPT/HCPCS: 36415; 80053; 82962; J0735